=== PATIENT | male | born 1940 | race Caucasian/White ===

== ENCOUNTER 2019-11-10 10:22 | Outpatient (CLI) | payer MEDICARE, OTHER, SELFPAY ==
[2019-11-10 11:03] LABS: Basophils % 0.6 %; Eosinophils # 0.1 10^3/uL (0.0-0.8); Eosinophils % 1.9 %; Hematocrit 49.8 % (42.0-52.0); Hemoglobin 16.4 g/dL (11.7-16.6); Lymphocytes # 1.4 10^3/uL (0.8-4.8); Lymphocytes % 30.7 %; Mean Corpuscular HGB Conc 32.9 g/dL (30.0-36.0); Mean Corpuscular Hemoglobin 31.7 pg (28.0-34.0); Mean Corpuscular Volume 96.1 fL (80-94); Monocytes # 0.7 10^3/uL (0.2-0.9); Monocytes % 15.5 %; Neutrophils # 2.4 10^3/uL (1.8-7.7); Neutrophils % 51.1 %; Nucleated Red Blood Cells % 0 %; Platelet Count 185 10^3/cmm (130-400); Red Blood Count 5.18 10^6/uL (4.1-5.3); Red Cell Distribution Width 13.2 % (12.1-15.1); White Blood Count 4.7 10^3/uL (4.0-10.0)
[2019-11-10 11:20] LABS: Anion Gap 12.7 (5-19); Blood Urea Nitrogen 17 mg/dL (8-23); Carbon Dioxide 31 mmol/L (22-29); Chloride 103 mmol/L (98-107); Glucose 116 mg/dL (65-115); Osmolality Calculated 291 mOsm/kg (285-295); Potassium 4.7 mmol/L (3.5-5.1); Sodium 142 mmol/L (136-145)
--- NOTE | 2019-11-10 15:19 | ECG_ITS ---
Measurements Intervals [place] Rate: 65 P: 12 NM: 193 QRS: -46 QRSD: 125 T: 10 QT: 398 QTc: 414 SINUS RHYTHM RIGHT BUNDLE BRANCH BLOCK [120+ ms QRS DURATION, UPRIGHT V1, 40+ ms S IN I I/aVL/V4/V5/V6] LEFT ANTERIOR FASCICULAR BLOCK [QRS AXIS <= -45, QR IN I, RS IN II] VOLTAGE CRITERIA FOR LVH Compared to ECG 07/10/2017 20:42:56 Left anterior fascicular block now present Left ventricular hypertrophy now present Electronically Signed On 11-12-2019 18:47:57 CDT by Aydee Myers M.D. [email or web address]
== END 2019-11-10 10:23 | disposition home or self-care (01) ==
LOC: LAB 10:35
PROVIDERS: Visit Provider Specialist
DX: Z01.810 Encounter for preprocedural cardiovascular examination (principal)
CPT/HCPCS: 36415; 80048; 85025; 93005

== ENCOUNTER 2020-01-19 | Outpatient (CLI) | payer MEDICARE, OTHER, SELFPAY ==
--- NOTE | 2020-01-18 09:54 | SUR.PREOP ---
Reschedule/ Caffeine intake Rescheduled d/t caffeine intake at 0700 this morning! New appointment date/time given. Prep instructions went over with the patient verbally and written instructions. Verbalized understanding.
== END 2020-01-19 23:00 | disposition home or self-care (01) ==
PROVIDERS: Visit Provider Internal Medicine Cardiovascular Disease
DX: R06.02 Shortness of breath (principal); R07.89 Other chest pain; I08.3 Combined rheumatic disorders of mitral, aortic and tricuspid valves
CPT/HCPCS: 93017

== ENCOUNTER 2020-01-19 09:38 | Outpatient (CLI) | payer MEDICARE, OTHER, SELFPAY ==
--- NOTE | 2020-01-19 10:10 | ECG_ITS ---
[facility] Test Date: 2020-01-19 Pat Name: Nasir Orourke Department: Room: Gender: Male Oracle R12 Developer: : 1940 Requested By: Belkis Isidro Order Number: [id number] Bella MD: Belkis Isidro M.D. Interpretive Statements NAME OF STUDY: LEXISCAN SESTAMIBI STRESS TEST INDICATION: Atypical Chest Pain PROCEDURE: At the baseline, the EKG revealed sinus bradycardia with right bundle branch block. The baseline blood pressure was 168/87 mm Hg with a heart rate of 58 beats/min. Lexiscan was infused over a period of 20 seconds. A total of 0.4 milligrams of Lexiscan was infused. The stress phase was continued for a total of 5 minutes. Heart rate at the end of the stress phase was 80 with a blood pressure 160/81. The EKG at the peak infusion revealed no significant changes. Sestamibi was injected 20 seconds after the Lexiscan infusion. Blood pressure at the end of the recovery phase was 178/85 with a heart rate of 80 per minute. CONCLUSION: 1. No significant EKG changes with the LexiScan infusion 2. No LexiScan induced chest pain or cardiac arrhythmia 3. Normal blood pressure and heart rate response 4. Sestamibi/sestamibi perfusion scan pending; see separate report. Electronically Signed On 01-20-2020 0:37:43 CDT by Belkis Isidro M.D. [id number]
[2020-01-19 10:11] VITALS: BMI 31.3
--- NOTE | 2020-01-19 10:11 | USCV_ITS ---
Nasir Orourke Age: 79 Gender: M : 1940 Exam Date: 01/19/2020 10:31 Ordering Phys: Belkis Isidro MD ([email or web address]) Technologist: Daisy Valenzuela Exam Location: [facility] [place] Indication: aortic valve stenosis BP: 130 / 75 HR: 63 Rhythm: Sinus Technical Quality: Adequate MEASUREMENTS (Male / Female) Normal Values 2D ECHO LV Diastolic Diameter PLAX 5.0 cm 4.2 - 5.9 / 3.9 - 5.3 cm LV Systolic Diameter PLAX 1.9 cm LV Chamber Size 3.2 cm IVS Diastolic Thickness 0.9 cm 0.6 - 1.0 / 0.6 - 0.9 cm IVS Systolic Thickness 2.2 cm LVPW Diastolic Thickness 1.4 cm 0.6 - 1.0 / 0.6 - 0.9 cm LVPW Systolic Thickness 1.5 cm RV Chamber Size 2.8 cm LVOT Diameter 2.1 cm LV Ejection Fraction 2D Teich 90.0 % LV Ejection Fraction MOD 2C 56.8 % LV Ejection Fraction 2C AL 58.9 % LA Diameter 3.9 cm LA Width 2.3 cm LA Height 3.8 cm RA Width 3.3 cm RA Height 3.7 cm Aorta at Sinotubular Diameter 3.6 cm M-MODE LV Diastolic Diameter MM 4.6 cm 4.2 - 5.9 / 3.9 - 5.3 cm LV Systolic Diameter MM 3.0 cm LV Ejection Fraction MM Teich 63.3 % IVS Diastolic Thickness MM 1.1 cm 0.6 - 1.0 / 0.6 - 0.9 cm IVS Systolic Thickness MM 1.2 cm LVPW Diastolic Thickness MM 1.0 cm 0.6 - 1.0 / 0.6 - 0.9 cm LVPW Systolic Thickness MM 1.4 cm RV Diastolic Diameter MM 1.9 cm Aortic Annulus Diameter 3.6 cm LA Ao Ratio MM 1.1 MV E Point Septal Separation 0.5 cm DOPPLER AV Peak Velocity 125.0 cm/s LVOT Peak Velocity 85.0 cm/s AV Area Cont Eq vti 2.3 cm squared AV Area Cont Eq pk 2.3 cm squared MV Area PHT 3.3 cm squared Mitral E to A Ratio 0.7 MV E' Velocity 7.0 cm/s Mitral E to MV E' Ratio 8.6 Mitral E to LV E' Lateral Ratio 8.7 Mitral E to LV E' Septal Ratio 8.4 TR Peak Velocity 177.0 cm/s TR Peak Gradient 12.6 mmHg TR Mean Velocity 120.5 cm/s TR Mean Gradient 6.5 mmHg TR Velocity Time Integral 45.2 cm TV Peak E Velocity 52.0 cm/s Right Atrial Pressure 3.0 mmHg Pulmonary Artery Systolic Pressu 15.5 mmHg PV Peak Velocity 71.0 cm/s RV Acceleration Time 0.1 s RV Ejection Time 0.1 s RV AcT/ET 0.9 FINDINGS Left Ventricle Normal left ventricular size and systolic function, EF 61 %. Mild left ventricular hypertrophy. Grade I/IV diastolic dysfunction (abnormal relaxation filling pattern), normal to mildly elevated filling pressures. Right Ventricle Normal right ventricular size and systolic function. Right Atrium Normal right atrial size. Left Atrium Normal left atrial size. Mitral Valve Thickened mitral valve. Mild mitral annular calcification. Aortic Valve Thickened aortic valve. Tricuspid Valve Trace tricuspid valve regurgitation. Pulmonic Valve Pulmonic valve not well visualized. Pericardium No pericardial effusion. Aorta Normal aorta. CONCLUSIONS Normal left ventricular size and systolic function, EF 61 %. Mild left ventricular hypertrophy. Grade I/IV diastolic dysfunction (abnormal relaxation filling pattern), normal to mildly elevated filling pressures. Thickened mitral valve. Thickened aortic valve. Trace tricuspid valve regurgitation. Mild mitral annular calcification. There is no pericardial effusion. There are no intracardiac masses. No previous study is available for comparison. Dr Belkis Isidro MD FAC (Electronically Signed) Final Date: 19 January 2020 20:48 S
--- NOTE | 2020-01-19 10:11 | NMCV_ITS ---
NM og perf SPECT r/s* 19302 Nasir Orourke Age: 79 Gender: M : 1940 Exam Date: 01/19/2020 11:14 Ordering Phys: Belkis Isidro MD ([email or web address]) Technologist: RANDY Brown Exam Location: [facility] Indications: SHORTNESS OF BREATH, CHEST PAIN STRESS TEST Please see separate stress test report in [facility] for full findings IMAGE PROTOCOL Rest/Stress 1 Lexiscan Day Radiopharmaceutical Dose (mCi) Administration Site Administered by Rest: Tc-99m 11.0 IV RANDY Doshi Sestamibi Stress:Tc-99m 33.0 IV RANDY Brown Sestamiulises Rest: 19-Jan-2020 60 Discovery 630 Stress: 19-Jan-2020 30 Discovery 630 0.4mg Lexiscan. Images obtained in supine and prone position. SPECT RESULTS Technical Quality: Excellent Raw Data Analysis: Normal Image Corrections: No attenuation or motion correction applied Summed Stress Score: 3 Summed Rest Score: 1 Summed Difference Score: 2 PERFUSION FINDINGS Small area of decreased tracer uptake in the mid and apical inferior and apical lateral region with a subtle area of reversibility in the apical inferior FUNCTIONAL RESULTS (calculated via Gated SPECT) Stress Image LV EF (%): 72 Stress EDV (mL):95 TID: 0.93 Stress ESV (mL):27 FUNCTIONAL FINDINGS: Segmental wall motion analysis revealing no gross wall motion normalities IMPRESSIONS 1. Myocardial perfusion imaging revealing small area of decreases uptake in the mid and apical inferior and apical lateral region with a subtle area of reversibility in the apical inferior region, suggestive of myocardial scarring with a small area of mandi-infarction ischemia in the distribution of the right coronary artery. 2. Normal LV ejection fraction of 72%. 3. LV wall motion analysis revealing no gross wall motion normalities. 4. Normal LV volume. No similar previous studies are available for comparison Dr Belkis Isidro MD FACC (Electronically Signed) Final Date: 19 January 2020 20:13 S
[2020-01-19] MEDS: regadenoson 0.4 Mg/5 ml Syringe IVP (12:14)
[2020-01-19 13:07] VITALS: BP 178/85; PULSE 79
== END 2020-01-19 09:39 | disposition home or self-care (01) ==
LOC: RAD 09:40
PROVIDERS: Visit Provider Internal Medicine Cardiovascular Disease
DX: R06.02 Shortness of breath; R07.9 Chest pain, unspecified; I25.9 Chronic ischemic heart disease, unspecified; I08.3 Combined rheumatic disorders of mitral, aortic and tricuspid valves
CPT/HCPCS: 78452; 93306; A9500; J2785

== ENCOUNTER 2020-06-09 10:09 | Outpatient (CLI) | payer MEDICARE, OTHER, SELFPAY ==
--- NOTE | 2020-02-16 17:21 | PTH.FRZRPT ---
Frozen Section Notes Speicmen(s): Right lower lip skin biopsy Gross: Skin ellipse measuring 1.1 x 0.4 x 0.3 cm bisected and submitted for frozen Preliminary Impression: Focus of atypical squamous cells with acute and chronic inflammation. - Specimen Information Pathologist: Christian Rouse Date: 02/16/20 Time Received: 09:25 Time Reported: 09:45 Pathology Specimen Reported to: Dr. Brad Sebastian Specimen reported at what time: 09:45
== END 2020-06-09 10:10 | disposition home or self-care (01) ==
LOC: LAB 10:10
PROVIDERS: Visit Provider Specialist
DX: L72.0 Epidermal cyst (principal)
CPT/HCPCS: 88304; 88305

== ENCOUNTER 2022-05-14 05:15 | Emergency (ER) | payer MEDICARE, OTHER, SELFPAY ==
[2022-05-14] VITALS (7 sets, daily range): BP systolic 138–204; BP diastolic 66–109; PULSE 76–85; RESP 16–33; TEMP 36.7; O2SAT 92–96; BMI 31.1
--- NOTE | 2022-05-14 05:21 | ECG_ITS ---
[facility] Test Date: 2022-05-14 Pat Name: Nasir Orourke Department: Room: Gender: Male Speech And Language Assistant: : 1940 Requested By: Merlin Nath Order Number: [id number] Bella MD: Belkis Isidro M.D. Measurements Intervals [place] Rate: 83 P: 45 CO: 165 QRS: -43 QRSD: 134 T: 57 QT: 376 QTc: 444 Interpretive Statements SINUS RHYTHM LEFT AXIS DEVIATION [QRS AXIS < -30] RIGHT BUNDLE BRANCH BLOCK [120+ ms QRS DURATION, UPRIGHT V1, 40+ ms S IN I/aVL/V4/V5/V6] MINIMAL VOLTAGE CRITERIA FOR LVH, CONSIDER NORMAL VARIANT [MEETS CRITERIA IN ONE OF: R(aVL), S(V1), R(V5), R(V5/V6)+S(V1)] POSSIBLE SEPTAL MYOCARDIAL INFARCTION , PROBABLY OLD [30 ms Q WAVE IN V1/V2] Compared to ECG 11/10/2019 11:31:27 Left-axis deviation now present Myocardial infarct finding now present Left anterior fascicular block no longer present Electronically Signed On 05-14-2022 20:34:50 PRIVATE MORTGAGE BANKER SAFE by Belkis Isidro M.D. [id number]
--- NOTE | 2022-05-14 05:23 | XRR_ITS ---
PROCEDURE INFORMATION: Exam: XR Chest Exam date and time: 05/14/2022 6:27 AM Age: 82 years old Clinical indication: Shortness of breath; Patient HX: C/O SOB TECHNIQUE: Imaging protocol: Radiologic exam of the chest. Views: 1 view. COMPARISON: CR XR chest 2V* [id number] 08/01/2017 12:16 PM FINDINGS: Lungs: The lung parenchyma is clear. Pleural spaces: No pneumothorax. No pleural effusion. Heart/Mediastinum: The cardiomediastinal silhouette is within normal limits. Bones/joints: Unremarkable. XR/XR chest 1V portable [id number] IMPRESSION: No acute cardiopulmonary abnormality.
--- NOTE | 2022-05-14 05:25 | W.ED.SOB ---
Documented by User: Merlin Nath MD 05/14/22 05:28 HPI - SOB/Dyspnea General: Chief Complaint: Shortness of Breath/Dyspnea Stated Complaint: SOB Time Seen by Provider: 05/14/22 05:16 Source: patient Mode of arrival: ambulatory Limitations: no limitations History of Present Illness: HPI Narrative: 82-year-old male who has a history of COPD states he has been having cough shortness of breath over the last 3 days he states its worse with laying flat he states that it is also worse with some exertion. States he is having a sharp pain in the center of his chest he feels like is from coughing. He does have wheezing here he denies any vomiting or diarrhea denies any pain currently. Associated symptoms: Reports chest pain; Deny abdominal pain, fever(s), nausea or vomiting Review of Systems Const: Denies: fever(s), chills, body aches or change in appetite Eyes: Denies: blurry vision or eye discomfort ENMT: Denies: throat pain or dental pain Card: Reports: chest pain Resp: Reports: dyspnea and non-productive cough GI: Denies: abdominal pain, nausea, vomiting or diarrhea : Denies: dysuria Musc: Denies: neck pain or back pain Skin/Breast: Denies: rash Neuro: Denies: headache(s) Psych: Denies: depression Asim/Lymph: Denies: easy bruising All/Imm: Denies: urticaria PFSH ED PFSH: Medical History (Updated 05/14/22 @ 05:42 by Merlin Nath MD) Abnormal EKG Asthma Atypical chest pain Benign essential HTN COPD (chronic obstructive pulmonary disease) Elevated blood pressure reading Neoplasm of lip Shingles SOB (shortness of breath) Surgical History History of carpal tunnel release Family History Son Cancer Denies family history of Diabetes CAD (coronary artery disease) Clotting disorder Dementia Chronic kidney disease (CKD) Suicide Anesthesia complication Bleeding disorder Lung disease Stroke Social History Smoking and tobacco status: current some day smoker Alcohol intake: current Alcohol intake frequency: 3 or more drinks per day Physical Exam Const: COMMON NORMALS: patient oriented x3 HENMT: COMMON NORMALS: normocephalic and atraumatic HEAD & SCALP: normocephalic and atraumatic Eye: COMMON NORMALS: Equal, round and reactive pupils present and EOMs intact bilaterally PUPIL: Yes Equal, round and reactive pupils present Neck/C-Spine: COMMON NORMALS: full ROM and supple Chest: COMMONS NORMALS: normal inspection of the chest and normal palpation of entire chest wall Resp: COMMON NORMALS: No retractions and No use of accessory muscles EFFORT & INSPECTION: Yes tachypneic AUSCULTATION: wheezes Cardio: COMMON NORMALS: regular rate, regular rhythm and No murmurs present (Cardio) RATE: regular rate RHYTHM: regular rhythm GI: COMMON NORMALS: Normal to inspection, nondistended, normoactive bowel sounds present, Soft to palpation, non-tender and no masses PALPATION: Yes Soft to palpation Extremity: COMMON NORMALS: normal to inspection and full ROM Neuro: COMMON NORMALS: patient oriented x3, moves all extremities and no focal motor deficits Psych: COMMON NORMALS: mental status grossly normal, Normal thought process present and cooperative THOUGHT PROCESS: Normal thought process present Skin: COMMON NORMALS: no rashes or lesions noted and no wounds GENERAL SKIN EXAM: no rashes or lesions noted Course Vital Signs: Vital signs: Vital Signs Temperature 98.0 F 05/14/22 05:19 Pulse Rate 85 05/14/22 06:53 Respiratory Rate 22 H 05/14/22 06:53 Blood Pressure 161/82 05/14/22 06:53 Pulse Oximetry 92 05/14/22 06:53 Oxygen Delivery Me thod 05/14/22 05:34 MDM - SOB/Dyspnea Lab Data 05/14/22 05:26 05/14/22 05:26 Labs/Radiology: Radiology Impressions Chest X-Ray 05/14/22 05:23 IMPRESSION: No acute cardiopulmonary abnormality. Laboratory Results WBC 5.7 10^3/uL (4.0-10.0) 05/14/22 05:26 RBC 5.34 10^6/uL (4.1-5.3) H 05/14/22 05:26 Hgb 17.2 g/dL (11.7-16.6) H 05/14/22 05:26 Hct 51.5 % (42.0-52.0) 05/14/22 05:26 MCV 96.4 fl (80-94) H 05/14/22 05:26 MCH 32.2 pg (28.0-34.0) 05/14/22 05:26 MCHC 33.4 g/dL (30.0-36.0) 05/14/22 05:26 RDW 13.1 % (12.1-15.1) 05/14/22 05:26 Plt Count 176 10^3/cmm (130-400) 05/14/22 05:26 MPV 10.1 fL (7.4-10.4) 05/14/22 05:26 Neut % (Auto) 59.5 % 05/14/22 05:26 Lymph % (Auto) 18.7 % 05/14/22 05:26 Harvey % (Auto) 19.8 % 05/14/22 05:26 Eos % (Auto) 1.2 % 05/14/22 05:26 Baso % (Auto) 0.4 % 05/14/22 05:26 Neut # (Auto) 3.40 10^3/uL (1.8-7.7) 05/14/22 05:26 Lymph # (Auto) 1.1 10^3/uL (0.8-4.8) 05/14/22 05:26 Harvey # (Auto) 1.1 10^3/uL (0.2-0.9) H 05/14/22 05:26 Eos # (Auto) 0.1 10^3/uL (0.0-0.8) 05/14/22 05:26 Baso # (Auto) 0.0 10^3/uL (0.0-0.1) 05/14/22 05:26 Nucleated RBC % (auto) 0 % 05/14/22 05:26 Nucleated RBCs # 0.0 /100WBC 05/14/22 05:26 Sodium 141 mmol/L (136-145) 05/14/22 05:26 Potassium 4.2 mmol/L (3.5-5.1) 05/14/22 05:26 Chloride 103 mmol/L (98-107) 05/14/22 05:26 Carbon Dioxide 26 mmol/L (22-29) 05/14/22 05:26 Anion Gap 16.2 (5-19) 05/14/22 05:26 BUN 11 mg/dL (8-23) 05/14/22 05:26 Creatinine 1.1 mg/dL (0.7-1.2) 05/14/22 05:26 GFR Calculation Not Reportable 05/14/22 05:26 Glucose 113 mg/dL (65-115) 05/14/22 05:26 Calculated Osmolality 292 mOsm/kg (285-295) 05/14/22 05:26 Calcium 9.1 mg/dL (8.5-10.5) 05/14/22 05:26 Total Bilirubin 0.8 mg/dL (0.15-1.2) 05/14/22 05:26 AST 38 U/L (0-40) 05/14/22 05:26 ALT 24 U/L (0-41) 05/14/22 05:26 Alkaline Phosphatase 122 U/L (40-130) 05/14/22 05:26 Troponin T Baseline 17 ng/L (0-15) H 05/14/22 05:26 Troponin T 120 Minute 15.40 ng/L (0-15) H 05/14/22 07:28 Delta Troponin T -1.60 ABS# (0-10) L 05/14/22 07:28 NT-Pro-B Natriuret Pep 278 pg/mL (0-450) 05/14/22 05:26 Total Protein 6.9 g/dL (6.6-8.7) 05/14/22 05:26 Albumin 4.2 g/dL (3.5-5.2) 05/14/22 05:26 Globulin 2.7 g/dL (1.3-4.6) 05/14/22 05:26 Nasal Influ A H1 2009 PCR Detected (NOT DETECT) A 05/14/22 07:22 Coronavirus 229E (PCR) Not detected (NOT DETECT) 05/14/22 05:25 Influenza A (H1) PCR Not detected (NOT DETECT) 05/14/22 07:22 Influenza A (H3) PCR Not detected (NOT DETECT) 05/14/22 07:22 Influenza Type A Ag positive (Negative) 05/14/22 05:25 Influenza Type A (PCR) Detected (NOT DETECT) A 05/14/22 07:22 Influenza Type B Ag negative (Negative) 05/14/22 05:25 Influenza Type B (PCR) Not detected (NOT DETECT) 05/14/22 07:22 SARS-CoV-2 (PCR) Not detected (NOT DETECT) 05/14/22 05:25 EKG Data EKG 1: I personally reviewed and interpreted this EKG as follows: EKG Interpretation Date: 05/14/22 EKG interpretation time: 05:21 Interpretation: nsr hr [address] or t wave abnormalities qrs 134 qtc 416 Discharge Plan Discharge Patient Disposition: Home Clinical Impression: Influenza A Condition: Stable Prescriptions: New Tamiflu 75 mg capsule 75 mg PO BID 5 Days Qty: 10 0RF prednisone 50 mg tablet 50 mg PO DAILY Qty: 5 0RF albuterol sulfate 90 mcg/actuation HFA aerosol inhaler 2 inh INHALATION Q4H PRN (Reason: shortness of breath or wheezing) Qty: 18 0RF No Action naproxen sodium [Aleve] 220 mg tablet 220 mg PO BID PRN amlodipine 5 mg tablet 5 mg PO DAILY 30 Days Qty: 30 5RF Discharge Orders: Discharge ED (Routine); Ordered 05/14/22 Ordered By: Rui Jones Discharge Diet: Advance as tolerated Discharge Activity: Resume usual activity Patient Instructions: Influenza (ED) Activity Restrictions/Additional Instructions: You are seen in the emergency room today for shortness of breath and cough. Your influenza was positive. Sign Out Sign Out Data: Patient Sign Out occurred on 05/14/22 at 05:55. Patient's care was discussed, and care was transferred from to Rui Jones DO. Coding Level of Care Code ED Supervisor Cutting And Sewing Room for Chg Fwd Exam Comprehensive Documented by User: Rui Jones DO 05/14/22 08:23 HPI - SOB/Dyspnea General: Chief Complaint: Shortness of Breath/Dyspnea Stated Complaint: SOB Time Seen by Provider: 05/14/22 05:16 PFSH ED PFSH: Medical History (Updated 05/14/22 @ 05:42 by Merlin Nath MD) Abnormal EKG Asthma Atypical chest pain Benign essential HTN COPD (chronic obstructive pulmonary disease) Elevated blood pressure reading Neoplasm of lip Shingles SOB (shortness of breath) Surgical History History of carpal tunnel release Family History Son Cancer Denies family history of Diabetes CAD (coronary artery disease) Clotting disorder Dementia Chronic kidney disease (CKD) Suicide Anesthesia complication Bleeding disorder Lung disease Stroke Social History Smoking and tobacco status: current some day smoker Alcohol intake: current Alcohol intake frequency: 3 or more drinks per day Course Vital Signs: Vital signs: Vital Signs Temperature 98.0 F 05/14/22 05:19 Pulse Rate 85 05/14/22 06:53 Respiratory Rate 22 H 05/14/22 06:53 Blood Pressure 161/82 05/14/22 06:53 Pulse Oximetry 92 05/14/22 06:53 Oxygen Delivery Me thod 05/14/22 05:34 MDM - SOB/Dyspnea Medical Decision Making Care assumed at change of care shift. Patient had initial troponin of 17 is a positive influenza. Looking back through his chart 2 years ago he had a questionable Lexiscan sestamibi stress test there was some area of concern concerning for potential reversible ischemia according to the note in the doctor's office his chest pain did not sound cardiac in nature the patient did not want to go forward with any further testing so they had decided to hold off and just observe. Second troponin actually trended down patient will be discharged home. Interestingly patient had recently gotten a flu shot within the last several days. Unfortunately none of time and gone by for him to develop any antibodies from shot this likely will have a full course of fluid from this infection. Medical Records I reviewed the patient's medical records. Lab Data I reviewed the patient's lab results. 05/14/22 05:26 05/14/22 05:26 Labs/Radiology: Radiology Impressions Chest X-Ray 05/14/22 05:23 IMPRESSION: No acute cardiopulmonary abnormality. Laboratory Results WBC 5.7 10^3/uL (4.0-10.0) 05/14/22 05:26 RBC 5.34 10^6/uL (4.1-5.3) H 05/14/22 05:26 Hgb 17.2 g/dL (11.7-16.6) H 05/14/22 05:26 Hct 51.5 % (42.0-52.0) 05/14/22 05:26 MCV 96.4 fl (80-94) H 05/14/22 05:26 MCH 32.2 pg (28.0-34.0) 05/14/22 05:26 MCHC 33.4 g/dL (30.0-36.0) 05/14/22 05:26 RDW 13.1 % (12.1-15.1) 05/14/22 05:26 Plt Count 176 10^3/cmm (130-400) 05/14/22 05:26 MPV 10.1 fL (7.4-10.4) 05/14/22 05:26 Neut % (Auto) 59.5 % 05/14/22 05:26 Lymph % (Auto) 18.7 % 05/14/22 05:26 Harvey % (Auto) 19.8 % 05/14/22 05:26 Eos % (Auto) 1.2 % 05/14/22 05:26 Baso % (Auto) 0.4 % 05/14/22 05:26 Neut # (Auto) 3.40 10^3/uL (1.8-7.7) 05/14/22 05:26 Lymph # (Auto) 1.1 10^3/uL (0.8-4.8) 05/14/22 05:26 Harvey # (Auto) 1.1 10^3/uL (0.2-0.9) H 05/14/22 05:26 Eos # (Auto) 0.1 10^3/uL (0.0-0.8) 05/14/22 05:26 Baso # (Auto) 0.0 10^3/uL (0.0-0.1) 05/14/22 05:26 Nucleated RBC % (auto) 0 % 05/14/22 05:26 Nucleated RBCs # 0.0 /100WBC 05/14/22 05:26 Sodium 141 mmol/L (136-145) 05/14/22 05:26 Potassium 4.2 mmol/L (3.5-5.1) 05/14/22 05:26 Chloride 103 mmol/L (98-107) 05/14/22 05:26 Carbon Dioxide 26 mmol/L (22-29) 05/14/22 05:26 Anion Gap 16.2 (5-19) 05/14/22 05:26 BUN 11 mg/dL (8-23) 05/14/22 05:26 Creatinine 1.1 mg/dL (0.7-1.2) 05/14/22 05:26 GFR Calculation Not Reportable 05/14/22 05:26 Glucose 113 mg/dL (65-115) 05/14/22 05:26 Calculated Osmolality 292 mOsm/kg (285-295) 05/14/22 05:26 Calcium 9.1 mg/dL (8.5-10.5) 05/14/22 05:26 Total Bilirubin 0.8 mg/dL (0.15-1.2) 05/14/22 05:26 AST 38 U/L (0-40) 05/14/22 05:26 ALT 24 U/L (0-41) 05/14/22 05:26 Alkaline Phosphatase 122 U/L (40-130) 05/14/22 05:26 Troponin T Baseline 17 ng/L (0-15) H 05/14/22 05:26 Troponin T 120 Minute 15.40 ng/L (0-15) H 05/14/22 07:28 Delta Troponin T -1.60 ABS# (0-10) L 05/14/22 07:28 NT-Pro-B Natriuret Pep 278 pg/mL (0-450) 05/14/22 05:26 Total Protein 6.9 g/dL (6.6-8.7) 05/14/22 05:26 Albumin 4.2 g/dL (3.5-5.2) 05/14/22 05:26 Globulin 2.7 g/dL (1.3-4.6) 05/14/22 05:26 Nasal Influ A H1 2009 PCR Detected (NOT DETECT) A 05/14/22 07:22 Coronavirus 229E (PCR) Not detected (NOT DETECT) 05/14/22 05:25 Influenza A (H1) PCR Not detected (NOT DETECT) 05/14/22 07:22 Influenza A (H3) PCR Not detected (NOT DETECT) 05/14/22 07:22 Influenza Type A Ag positive (Negative) 05/14/22 05:25 Influenza Type A (PCR) Detected (NOT DETECT) A 05/14/22 07:22 Influenza Type B Ag negative (Negative) 05/14/22 05:25 Influenza Type B (PCR) Not detected (NOT DETECT) 05/14/22 07:22 SARS-CoV-2 (PCR) Not detected (NOT DETECT) 05/14/22 05:25 Discharge Plan Discharge Patient Disposition: Home Clinical Impression: Influenza A Condition: Stable Prescriptions: New Tamiflu 75 mg capsule 75 mg PO BID 5 Days Qty: 10 0RF prednisone 50 mg tablet 50 mg PO DAILY Qty: 5 0RF albuterol sulfate 90 mcg/actuation HFA aerosol inhaler 2 inh INHALATION Q4H PRN (Reason: shortness of breath or wheezing) Qty: 18 0RF No Action naproxen sodium [Aleve] 220 mg tablet 220 mg PO BID PRN amlodipine 5 mg tablet 5 mg PO DAILY 30 Days Qty: 30 5RF Discharge Orders: Discharge ED (Routine); Ordered 05/14/22 Ordered By: Rui Jones Discharge Diet: Advance as tolerated Discharge Activity: Resume usual activity Patient Instructions: Influenza (ED) Activity Restrictions/Additional Instructions: You are seen in the emergency room today for shortness of breath and cough. Your influenza was positive. Sign Out Sign Out Data: Patient Sign Out occurred on 05/14/22 at 05:55. Patient's care was discussed, and care was transferred from to Rui Jones DO. Coding Level of Care Code ED Supervisor Cutting And Sewing Room for Juanita Fwd Exam Comprehensive
[2022-05-14 05:31] LABS: Basophils % 0.4 %; Eosinophils # 0.1 10^3/uL (0.0-0.8); Eosinophils % 1.2 %; Hematocrit 51.5 % (42.0-52.0); Hemoglobin 17.2 g/dL (11.7-16.6); Lymphocytes # 1.1 10^3/uL (0.8-4.8); Lymphocytes % 18.7 %; Mean Corpuscular HGB Conc 33.4 g/dL (30.0-36.0); Mean Corpuscular Hemoglobin 32.2 pg (28.0-34.0); Mean Corpuscular Volume 96.4 fl (80-94); Mean Platelet Volume 10.1 fL (7.4-10.4); Monocytes # 1.1 10^3/uL (0.2-0.9); Monocytes % 19.8 %; Neutrophils % 59.5 %; Nucleated Red Blood Cells % 0 %; Platelet Count 176 10^3/cmm (130-400); Red Blood Count 5.34 10^6/uL (4.1-5.3); Red Cell Distribution Width 13.1 % (12.1-15.1); White Blood Count 5.7 10^3/uL (4.0-10.0)
[2022-05-14] MEDS: ipratropium-albuterol 3 mL Neb INHALATION (05:36)
[2022-05-14 05:39] LABS: Influenza A by IFA positive (Negative); Influenza B by IFA negative (Negative)
[2022-05-14 05:55] LABS: Troponin(5th) Baseline 17 ng/L (0-15)
[2022-05-14 06:28] LABS: Alanine Aminotransferase 24 U/L (0-41); Albumin Level 4.2 g/dL (3.5-5.2); Alkaline Phosphatase 122 U/L (40-130); Aspartate Amino Transferase 38 U/L (0-40); Blood Urea Nitrogen 11 mg/dL (8-23); Calcium 9.1 mg/dL (8.5-10.5); Carbon Dioxide 26 mmol/L (22-29); Chloride 103 mmol/L (98-107); Globulin 2.7 g/dL (1.3-4.6); Glucose 113 mg/dL (65-115); NT Pro B Type Natriuretic Pept 278 pg/mL (0-450); Osmolality Calculated 292 mOsm/kg (285-295); Sodium 141 mmol/L (136-145); Total Bilirubin 0.8 mg/dL (0.15-1.2); Total Protein 6.9 g/dL (6.6-8.7)
[2022-05-14 06:43] LABS: Anion Gap 16.2 (5-19); Potassium 4.2 mmol/L (3.5-5.1)
[2022-05-14 07:12] LABS: Adenovirus Not Detected (NOT DETECT); Chlamydia Pneumoniae Not Detected (NOT DETECT); Coronavirus 229E,HKU1,NL63,OC4 Not Detected (NOT DETECT); Human Metapneumovirus Not Detected (NOT DETECT); Human Rhinovirus/Enterovirus Not Detected (NOT DETECT); Influenza A Detected (NOT DETECT); Influenza A H1 Not Detected (NOT DETECT); Influenza A H1-2009 Detected (NOT DETECT); Influenza A H3 Not Detected (NOT DETECT); Influenza B Not Detected (NOT DETECT); Mycoplasma Pneumoniae Not Detected (NOT DETECT); Parainfluenza Virus Type 1 Not Detected (NOT DETECT); Parainfluenza Virus Type 2 Not Detected (NOT DETECT); Parainfluenza Virus Type 3 Not Detected (NOT DETECT); Parainfluenza Virus Type 4 Not Detected (NOT DETECT); Respiratory Syncytial Virus A Not Detected (NOT DETECT); Respiratory Syncytial Virus B Not Detected (NOT DETECT); SARS-COV-2 Not Detected (NOT DETECT)
[2022-05-14 07:23] LABS: Influenza A Detected (NOT DETECT); Influenza A H1 Not Detected (NOT DETECT); Influenza A H1-2009 Detected (NOT DETECT); Influenza A H3 Not Detected (NOT DETECT); Influenza B Not Detected (NOT DETECT)
--- NOTE | 2022-05-14 07:23 | ECG_ITS ---
[facility] Test Date: 2022-05-14 Pat Name: Nasir Orourke Department: Room: Gender: Male Cooker Soda: : 1940 Requested By: Merlin Nath Order Number: [id number] Bella MD: Belkis Isidro M.D. Measurements Intervals [place] Rate: 77 P: 50 SC: 182 QRS: -42 QRSD: 126 T: 26 QT: 381 QTc: 434 Interpretive Statements SINUS RHYTHM LEFT AXIS DEVIATION [QRS AXIS < -30] RIGHT BUNDLE BRANCH BLOCK [120+ ms QRS DURATION, UPRIGHT V1, 40+ ms S IN I/aVL/V4/V5/V6] MODERATE VOLTAGE CRITERIA FOR LVH, CONSIDER NORMAL VARIANT [MEETS CRITERIA IN ONE OF: R(aVL), S(V1), R(V5), R(V5/V6)+S(V1)] Compared to ECG 05/14/2022 05:21:28 Myocardial infarct finding no longer present Electronically Signed On 05-14-2022 20:45:01 CERTIFIED ALCOHOL AND DRUG COUNSELOR by Belkis Isidro M.D. [id number]
[2022-05-14 07:24] LABS: Results from GEN
== END 2022-05-14 08:54 | disposition home or self-care (01) ==
PROVIDERS: Emergency Medicine; Emergency Provider Family Medicine
DX: J10.1 Influenza due to other identified influenza virus with other respiratory manifestations (principal); R07.9 Chest pain, unspecified; J44.9 Chronic obstructive pulmonary disease, unspecified; I10 Essential (primary) hypertension; F17.200 Nicotine dependence, unspecified, uncomplicated
CPT/HCPCS: 71045; 80053; 83880; 84484; 85025; 87631; 87635; 87804; 93005; 94640; 96374; 99285; J2930

== ENCOUNTER 2022-07-03 11:28 | Outpatient (CLI) | payer MEDICARE, OTHER, SELFPAY ==
--- NOTE | 2022-07-03 11:43 | XR_ITS ---
WS: [id number] XR abdomen min 2V [id number] REASON FOR EXAM: EPIGASTRIC PAIN FINDINGS: No free air or retroperitoneal air. Unremarkable bowel gas pattern. No mass identified. No significant calcification identified. 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 XR/XR abdomen min 2V [id number] IMPRESSION: No acute abnormality.
== END 2022-07-03 11:29 | disposition home or self-care (01) ==
PROVIDERS: PCP Family Medicine; Visit Provider Family Medicine
DX: R10.13 Epigastric pain (principal)
CPT/HCPCS: 74019

== ENCOUNTER 2023-07-21 15:06 | Outpatient (CLI) | payer MEDICARE, OTHER, SELFPAY ==
--- NOTE | 2023-07-21 15:14 | XRR_ITS ---
PROCEDURE INFORMATION: Exam: XR Chest Exam date and time: 07/21/2023 3:23 PM Age: 83 years old Clinical indication: Shortness of breath and wheezing; Patient HX: SOB, wheezing, spitting up for 2 weeks; Additional info: Acute exacerbation copd TECHNIQUE: Imaging protocol: Radiologic exam of the chest. Views: 2 views. COMPARISON: CR XR chest 1V portable [id number] 05/14/2022 6:27 AM FINDINGS: Lungs: Patulous bibasilar opacities, right greater than left. Pleural spaces: No pleural effusion. No pneumothorax. Heart/Mediastinum: No cardiomegaly. Bones/joints: Unremarkable. XR/XR chest 2V* [id number] IMPRESSION: Patulous bibasilar opacities, right greater than left.
== END 2023-07-21 15:07 | disposition home or self-care (01) ==
LOC: RAD 15:08
PROVIDERS: PCP Family Medicine; Visit Provider Family Medicine
DX: J44.1 Chronic obstructive pulmonary disease with (acute) exacerbation (principal); R91.8 Other nonspecific abnormal finding of lung field
CPT/HCPCS: 71046

== ENCOUNTER 2023-08-06 08:39 | Outpatient (CLI) | payer MEDICARE, OTHER, SELFPAY ==
[2023-08-06 09:00] VITALS: PULSE 76; RESP 18; O2SAT 97
[2023-08-06] MEDS: albuterol 2.5 mg/3 mL Neb INHALATION (09:01)
[2023-08-06 09:05] VITALS: PULSE 78
== END 2023-08-06 08:40 | disposition home or self-care (01) ==
PROVIDERS: PCP Family Medicine; Visit Provider Family Medicine
DX: J44.9 Chronic obstructive pulmonary disease, unspecified (principal); Z87.891 Personal history of nicotine dependence; R94.2 Abnormal results of pulmonary function studies
CPT/HCPCS: 94060; J7613

== ENCOUNTER 2023-10-15 11:01 | Outpatient (CLI) | payer MEDICARE, OTHER, SELFPAY ==
--- NOTE | 2023-10-15 11:10 | XRR_ITS ---
PROCEDURE INFORMATION: Exam: XR Left Knee Exam date and time: 10/15/2023 11:21 AM Age: 83 years old Clinical indication: Pain; Knee; Bilateral; Additional info: Bilateral knee joint pain greater than 3 months TECHNIQUE: Imaging protocol: Radiologic exam of the left knee. Views: 3 views. COMPARISON: No relevant prior studies available. FINDINGS: Bones/joints: Severe degenerative change, preferentially involving the medial tibiofemoral joint. Soft tissues: Punctate soft tissue calcifications. XR/XR knee LT 3V* [id number] IMPRESSION: Severe degenerative change, preferentially involving the medial tibiofemoral joint.
--- NOTE | 2023-10-15 11:10 | XRR_ITS ---
PROCEDURE INFORMATION: Exam: XR Right Knee Exam date and time: 10/15/2023 11:21 AM Age: 83 years old Clinical indication: Bilateral; Patient HX: Left and right knee pain for 3 months; Additional info: Bilateral knee joint pain greater than 3 months TECHNIQUE: Imaging protocol: Radiologic exam of the right knee. Views: 3 views. COMPARISON: No relevant prior studies available. FINDINGS: Bones/joints: Severe degenerative change, disproportionately involving the medial tibiofemoral joint. Small joint effusion. Ankylosis of the proximal tibia and fibula. Soft tissues: Soft tissue calcifications. XR/XR knee RT 3V* [id number] IMPRESSION: Severe degenerative change, disproportionately involving the medial tibiofemoral joint.
== END 2023-10-15 11:02 | disposition home or self-care (01) ==
LOC: RAD 11:06
PROVIDERS: PCP Family Medicine; Visit Provider Family Medicine
DX: M25.561 Pain in right knee (principal); M25.562 Pain in left knee; M17.0 Bilateral primary osteoarthritis of knee
CPT/HCPCS: 73562

== ENCOUNTER → 2023-10-31 07:43 | Outpatient (BNVA) | payer MEDICARE, OTHER, SELFPAY | PROVIDERS: PCP Family Medicine; Visit Provider Physician Assistant | DX: M17.0 Bilateral primary osteoarthritis of knee | CPT/HCPCS: 20610; 73560; 73565; 99203; J3301 ==

== ENCOUNTER → 2024-01-27 13:21 | Outpatient (BNVA) | payer MEDICARE, OTHER, SELFPAY | PROVIDERS: PCP Family Medicine; Visit Provider Student in an Organized Health Care Education/Training Program | DX: M17.0 Bilateral primary osteoarthritis of knee | CPT/HCPCS: 99214 ==

== ENCOUNTER 2024-02-22 06:30 | Outpatient (RCR) | payer MEDICARE, OTHER, SELFPAY | END 2024-03-22 23:59 | disposition home or self-care (01) | LOC: GPT 06:30 | PROVIDERS: Visit Provider Internal Medicine | DX: M17.11 Unilateral primary osteoarthritis, right knee (principal) | CPT/HCPCS: 97110; 97112; 97161 ==

== ENCOUNTER 2024-03-01 09:24 | Outpatient (CLI) | payer MEDICARE, OTHER, SELFPAY ==
[2024-03-01 09:52] LABS: Basophils % 0.5 %; Eosinophils # 0.1 10^3/uL (0.0-0.8); Eosinophils % 2.2 %; Hematocrit 47.7 % (37-53); Lymphocytes # 1.9 10^3/uL (0.8-4.8); Lymphocytes % 31.5 %; Mean Corpuscular HGB Conc 33.1 g/dL (30-55); Mean Corpuscular Hemoglobin 32.6 pg (27-33); Mean Corpuscular Volume 98.4 fl (82-101); Mean Platelet Volume 10.3 fL (7.4-10.4); Monocytes # 0.7 10^3/uL (0.2-0.9); Monocytes % 12.1 %; Neutrophils # 3.12 10^3/uL (1.8-7.7); Neutrophils % 53.2 %; Nucleated Red Blood Cells % 0 %; Platelet Count 227 10^3/cmm (157-399); Red Blood Count 4.85 10^6/uL (3.85-5.65); Red Cell Distribution Width 13.6 % (12.1-15.1); White Blood Count 5.87 10^3/uL (3.29-11.43)
[2024-03-01 10:10] LABS: Alanine Aminotransferase 17 U/L (0-41); Alkaline Phosphatase 105 U/L (40-130); Anion Gap 10.8 (5-19); Aspartate Amino Transferase 24 U/L (0-40); Blood Urea Nitrogen 14 mg/dL (8-23); Calcium 8.8 mg/dL (8.5-10.5); Carbon Dioxide 31 mmol/L (22-29); Chloride 104 mmol/L (98-107); Globulin 2.6 g/dL (1.3-4.6); Glucose 120 mg/dL (65-115); Osmolality Calculated 296 mOsm/kg (285-295); Potassium 3.8 mmol/L (3.5-5.1); Sodium 142 mmol/L (136-145); Total Bilirubin 1.1 mg/dL (0.15-1.2); Total Protein 6.6 g/dL (6.6-8.7)
[2024-03-01 12:48] LABS: Charge for UA Resulting for Rev
[2024-03-01 13:05] LABS: Bilirubin Urine Negative (Negative); Blood Urine Negative (Negative); Glucose Urine UA Negative (Normal); Ketones Urine Negative (Negative); Leukocyte Esterase Urine Negative (Negative); Nitrate Urine Negative (Negative); Protein Urine Negative (Negative); Specific Gravity, Urine 1.008 (1.005-1.030); Urine Appearance Clear (CLEAR); Urine Color Yellow (Yellow); Urobilinogen Urine 0.2 mg/dL (Negative); pH Urine 5.5 (5-7)
[2024-03-01 13:07] LABS: Bacteria Urine None Seen /hpf; Hyaline Casts Urine 0-4 /lpf; RBC Urine 0-2 /hpf (0-2); Squamous Epithelial Cell Urine 0-5 /hpf (0-5); WBC Urine 0-5 /hpf (0-5)
== END 2024-03-01 09:25 | disposition home or self-care (01) ==
LOC: LAB 09:26
PROVIDERS: PCP Family Medicine; Visit Provider Student in an Organized Health Care Education/Training Program
DX: Z01.818 Encounter for other preprocedural examination (principal)
CPT/HCPCS: 36415; 80053; 81003; 81015; 85025

== ENCOUNTER 2024-03-04 13:16 | Outpatient (CLI) | payer MEDICARE, OTHER, SELFPAY ==
--- NOTE | 2024-03-04 13:30 | CT_ITS ---
WS: [id number] CT RIGHT knee, noncontrast HISTORY: DJD KNEE TECHNIQUE: Protocol for [facility] total knee replacement has been obtained. This includes axial imaging th rough the RIGHT hip, RIGHT knee and RIGHT ankle. DLP: 930.15 mGy.cm COMPARISON: 10/31/2023 Pelvis: Mild narrowing of the SI joints. No destructive bone lesions. RIGHT knee: Moderate tricompartment osteoarthritis. More significant narrowing of the medial compartm ent. Osseous fusion between the proximal tibia and fibula. Small hiatal hernia. RIGHT ankle: Negative. CT/CT knee RT [facility] [id number] IMPRESSION: CT imaging provided for [facility] robotic total knee replacement.
== END 2024-03-04 13:17 | disposition home or self-care (01) ==
LOC: RAD 13:18
PROVIDERS: PCP Family Medicine; Visit Provider Student in an Organized Health Care Education/Training Program
DX: Z01.818 Encounter for other preprocedural examination (principal); M17.0 Bilateral primary osteoarthritis of knee
CPT/HCPCS: 73700

== ENCOUNTER → 2024-03-09 11:43 | Outpatient (BNVA) | payer MEDICARE, OTHER, SELFPAY | PROVIDERS: PCP Family Medicine; Visit Provider Family Medicine | DX: Z01.818 Encounter for other preprocedural examination (principal); I45.10 Unspecified right bundle-branch block; I49.8 Other specified cardiac arrhythmias; I44.4 Left anterior fascicular block; I51.7 Cardiomegaly | CPT/HCPCS: 93005 ==

== ENCOUNTER 2024-03-15 09:37 | Observation (INO) | payer MEDICARE, OTHER, SELFPAY ==
[2024-03-15] VITALS (18 sets, daily range): BP systolic 131–170; BP diastolic 65–93; PULSE 76–105; RESP 12–19; TEMP 36.1–36.7; O2SAT 92–98
[2024-03-15] MEDS: lactated ringers 500 ML IV (06:28)
[2024-03-15] MEDS: sodium chloride 0.9% 1,000 ML 30 ML IV (06:30)
[2024-03-15] MEDS: acetaminophen 1,000 MG/100 ML PIGGYBACK 400 MG IV ×3 (06:32→22:30)
[2024-03-15] MEDS: ketorolac 30 mg/mL INJ IVP (06:36)
[2024-03-15 06:47] LABS: Basophils % 0.6 %; Eosinophils # 0.1 10^3/uL (0.0-0.8); Eosinophils % 1.8 %; Hematocrit 50.6 % (37-53); Lymphocytes # 2.2 10^3/uL (0.8-4.8); Lymphocytes % 35.8 %; Mean Corpuscular HGB Conc 33.6 g/dL (30-55); Mean Corpuscular Hemoglobin 32.5 pg (27-33); Mean Corpuscular Volume 96.7 fl (82-101); Mean Platelet Volume 10.1 fL (7.4-10.4); Monocytes % 16.3 %; Neutrophils # 2.81 10^3/uL (1.8-7.7); Neutrophils % 45.3 %; Nucleated Red Blood Cells % 0 %; Platelet Count 216 10^3/cmm (157-399); Red Blood Count 5.23 10^6/uL (3.85-5.65); Red Cell Distribution Width 13.2 % (12.1-15.1)
[2024-03-15] MEDS: midazolam 1 mg/mL INJ 2 mL 2 MG IVP (06:50)
--- NOTE | 2024-03-15 06:55 | P.HP_ITS ---
Same Day Surgery H&P Indication for Procedure/HPI DATE OF PROCEDURE: March 15, 2024 CHIEF COMPLAINT/INDICATIONFOR SURGICAL PROCEDURE: Right knee degenerative joint disease PREOP DIAGNOSIS: Right knee degenerative joint disease PLANNED PROCEDURE: Operation Date: 03/15/24 07:00 Proposed Procedures p Kevin Robot Total Knee Arthroplasty(Right) - Shiv Vang DO Medications/Allergies* Home Medications Medication Instructions Recorded Confirmed Type naproxen sodium 220 mg tablet 220 mg PO BID PRN Pain 02/10/20 03/15/24 History (Aleve) cyclobenzaprine 10 mg tablet 10 mg PO BID PRN Spasms 03/09/24 03/15/24 History levalbuterol tartrate 45 2 inh inhalation Q6H 03/09/24 03/15/24 History mcg/actuation aerosol inhaler (Xopenex HFA) Allergies/Adverse Reactions Allergy/AdvReac Type Severity Reaction Status Date / Time No Known Allergies Allergy Verified 03/09/24 12:00 Current Medications: Generic Name Dose Route Start Last Admin Trade Name Freq PRN Reason Stop Dose Admin Sodium Chloride 1,000 mls @ 30 mls/hr 03/15/24 06:00 03/15/24 06:30 Sodium Chloride 0.9% IV 03/16/24 05:59 30 mls/hr .Q24H KATHE Administration Pertinent History/Comorbid Conditions* Medical History (Updated 10/31/23 @ 08:58 by TEJINDER Encarnacion) Benign essential HTN Elevated blood pressure reading Atypical chest pain Abnormal EKG SOB (shortness of breath) COPD (chronic obstructive pulmonary disease) Shingles Asthma Neoplasm of lip Surgical History (Updated 11/29/19 @ 14:59 by Belkis Isidro MD) History of carpal tunnel release Family History (Updated 08/24/20 @ 14:20 by Rebecca Humphrey RN) Cancer Son Denies family history of Diabetes CAD (coronary artery disease) Clotting disorder Dementia Chronic kidney disease (CKD) Suicide Anesthesia complication Bleeding disorder Lung disease Stroke Social History Smoking and tobacco/nicotine status: current some day tobacco/nicotine user Alcohol intake: current Alcohol intake frequency: 3 or more drinks per day Substance/Drug Use: never Pertinent Exam Findings alert, oriented x 3, operative site marked and procedure specific exam findings Please refer to detailed orthopedic examination on 01/27/2024 listed below: bilateral Knee exam -Patellar crepitus with range of motion tender to palpation over the retropatellar space with positive patellar grind -ROM 0-115 degree -5 degree varus deformity bilaterally -Medial joint line tenderness, lateral joint line tenderness -Negative Jerry's -Stable varus valgus stress -negative Leland's test but pain noted no palpable click -Patient can wiggle toes and has a pedal pulse of 2+. Recommendations Surgery/Procedure today Other Plans: Plan to proceed to the OR today for a right total knee arthroplasty?Kevin robotic assisted. He is clear the preoperative clearance process. He states his overall health is at baseline no new changes in his health. Patient denies any urinary symptoms. At this point time patient is ready proceed with right total knee arthroplasty once again he understands the ins and outs of procedure the risk benefits complication alternatives surgery and through shared decision-orestes wilson elects proceed with surgical intervention. All questions answered at this time. Coding Level of Care Code Acute Code for Chg Fwd
--- NOTE | 2024-03-15 07:00 | ANES.PREANE2 ---
Pre-Anesthetic Assessment Height/Weight: Height 1.73 m Weight 99.337 kg Temp Pulse Resp BP Pulse Ox O2 Del Method 97.4 F L 79 18 158/93 94 Room Air 03/15/24 06:01 03/15/24 06:01 03/15/24 06:01 03/15/24 06:01 03/15/24 06:01 03/15/24 06:01 Preop Diagnosis: Right knee degenerative joint disease Operation Date: 03/15/24 07:00 Proposed Procedures p Kevin Robot Total Knee Arthroplasty(Right) - Shiv Vang DO Familial anesthetic complications: None Was Beta Cristi taken within 24 hours: N/A Was Clonidine taken within 24 hours: N/A Last intake: Intake Last Liquid Date 03/14/24 Last Liquid Time 15:00 Last Solid Date 03/14/24 Last Solid Time 15:00 Social No alcohol and No tobacco Exam alert, oriented x 3, clear to auscultation bilaterally and regular rate & rhythm Airway Mallampati: Class III Dentition: chipped Pulmonary Chronic Obstructive Pulmonary Disease (2L O2 (with poor compliance)) CV/HEM Hypertension Anesthetic Plan ASA status: 4 Anesthesia: Regional (specify below) Risk of > 500 ml blood loss (7ml/kg in children): No Medications/Allergies Home Medications Medication Instructions Recorded Confirmed Last Taken Type naproxen sodium 220 mg tablet 220 mg PO BID PRN Pain 02/10/20 03/15/24 03/11/24 History (Aleve) amlodipine 5 mg tablet 5 mg PO DAILY 30 days #30 tabs 01/22/21 03/15/24 03/14/24 Rx Right medial manager mechanical brace #1 ea 10/31/23 01/27/24 Unknown Rx cyclobenzaprine 10 mg tablet 10 mg PO BID PRN Spasms 03/09/24 03/15/24 03/14/24 History levalbuterol tartrate 45 2 inh inhalation Q6H 03/09/24 03/15/24 03/14/24 History mcg/actuation aerosol inhaler (Xopenex HFA) Allergies Allergy/AdvReac Type Severity Reaction Status Date / Time No Known Allergies Allergy Verified 03/09/24 12:00 Current Medications Generic Name Dose Route Start Last Admin Trade Name Freq PRN Reason Stop Dose Admin Sodium Chloride 1,000 mls @ 30 mls/hr 03/15/24 06:00 03/15/24 06:30 Sodium Chloride 0.9% IV 03/16/24 05:59 30 mls/hr .Q24H KATHE Administration PFSH Anesthesia Medical History Benign essential HTN Elevated blood pressure reading Atypical chest pain Abnormal EKG SOB (shortness of breath) COPD (chronic obstructive pulmonary disease) Shingles Asthma Neoplasm of lip Surgical History History of carpal tunnel release Family History Son Cancer Denies family history of Diabetes CAD (coronary artery disease) Clotting disorder Dementia Chronic kidney disease (CKD) Suicide Anesthesia complication Bleeding disorder Lung disease Stroke Social History Smoking and tobacco/nicotine status: current some day tobacco/nicotine user Alcohol intake: current Alcohol intake frequency: 3 or more drinks per day Substance/Drug Use: never Data Anesthesia 03/15/24 06:29 03/15/24 06:29 Short CBC 03/15/24 Range/Units 06:29 WBC 6.20 (3.29-11.43) 10^3/uL Hgb 17.00 H (11.27-16.99) g/dL Hct 50.6 (37-53) % MCV 96.7 (82-101) fl Plt Count 216 (157-399) 10^3/cmm Neut % (Auto) 45.3 % Neut # (Auto) 2.81 (1.8-7.7) 10^3/uL Cardiac Studies: Echocardiogram Ultrasound 01/19/20 Sestamibi Stress Test (Cardiology) 01/19/20
--- NOTE | 2024-03-15 07:01 | ANES.PROC ---
Anesthesia Procedures Procedure/Date: 03/15/24 Nerve Block ^: Nerve Block 1: Main Anesthesia: spinal anesthesia block Time Out Performed: Yes Consent: requested by attending/covering physician, from patient, from other, risks and benefits reviewed and patient agrees to proceed Nerve block location: adductor canal (R) Anesthesia monitors applied: pulse oximetry, EKG, BP cuff and oxygen Nerve block position: supine Anesthetic Used: ropivicaine 0.5% (30 ml) and with decadron (4 mg) Ultrasound used to: recognize landmarks and visualize and ID femerol nerve Nerve Stimulator Used?: No Interscalene/Femoral BLK: 4 stimuplex 21 g needle used for position and inplane approach, visualize local anesthetic spread and no vascular puncture identified Injection: neg aspiration of heme Patient Tolerated Procedure: well Complications: none Additional Comments: Versed 2 mg administered IV
--- NOTE | 2024-03-15 07:04 | PC.NURSE ---
pt time out performed for adductor canal block anesthesia requested 2mg of versed for pt medication administered and block was performed. Pt was given oxygen through a nasal cannula and placed on a heart monitor. Block was performed by injecting 0.5% ropivicaine into a adductor canal for post knee surgery pain control.
[2024-03-15 07:09] LABS: Blood Urea Nitrogen 18 mg/dL (8-23); Calcium 9.6 mg/dL (8.5-10.5); Carbon Dioxide 34 mmol/L (22-29); Chloride 102 mmol/L (98-107); Creatinine Clr Calc Pharmacy 51.4191; Glucose 97 mg/dL (65-115); Osmolality Calculated 300 mOsm/kg (285-295); Sodium 144 mmol/L (136-145)
[2024-03-15] MEDS: ceFAZolin 2,000 MG in sodium chloride 0.9% (plus) 50 ML 100 MG IV ×3 (07:12→22:59)
[2024-03-15] MEDS: tranexamic acid 1,000 mg/10mL SDV 1000 MG IV (08:02)
[2024-03-15] MEDS: ROPivacaine 0.2% Premix 100 mL 200 MG XX (08:22)
[2024-03-15] MEDS: ketorolac 30 mg/mL INJ XX (08:23)
[2024-03-15] MEDS: EPINEPHrine 1 mg/mL INJ XX (08:23)
[2024-03-15] MEDS: tranexamic acid 1,000 mg/10mL SDV 1000 MG XX (08:24)
--- NOTE | 2024-03-15 08:29 | PC.NURSE ---
Block Dr. Adams performed a right adductor canal block using 30ml of 0.5% ropivicaine.
--- NOTE | 2024-03-15 10:03 | W.PM.BPON ---
Date of Procedure: 03/15/2024 Surgeon: Shiv Vang DO Director Instructional Material(s): Jacinto Vang PA-C Procedure(s) performed: Right total knee arthroplasty?Kevin robotic assisted Findings of the procedure(s): Patient found to have severe right knee degenerative joint disease underwent procedure as planned without issues or complications Estimated blood loss: 25 mL Specimen(s) removed: Tibia femur and patellar bone cuts removed Post-operative diagnosis: Right knee severe degenerative joint disease
--- NOTE | 2024-03-15 10:04 | P.OP_ITS ---
Operative Report Date of procedure: March 15, 2024 Surgeon: Shiv Vang DO Detention Worker: Jacinto Vang PA-C: PA was necessary for assistance in this case with leg positioning retraction and protection of neurovascular structures as well as assistance in implantation wound closure and dressing application. Procedure: Preoperative diagnosis: Right knee degenerative joint disease Post-op diagnosis: Same Procedure done: Right total knee arthroplasty, cemented?robotic assisted Kevin Implants: Mervin triathlon size 5 femur CR cemented?Right Mervin triathlon size? 6 tibia universal baseplate cemented [place] triathlon asymmetric patella size 29 mm [place] triathlon polyethylene 10mm Surgeon: Shiv Vang DO Estimated blood?loss: 25 mL Tourniquet 77mins IV fluids: 1100 mL Urine output: 200 mL Complications: None Condition: stable Disposition: floor Brief History: Patient is a 83-year-old male with with chronic?Right knee degenerative joint disease.? Patient has been worked up in the outpatient setting in the orthopedic office at this point time through shared decision making given? relt-ai-egal arthritis as well as failed conservative treatment, and pt would?like to proceed with a?Right total knee arthroplasty.? Through shared decision making elected to proceed with surgical intervention for?Right total knee arthroplasty.? We talked about continued conservative treatment and surgical intervention as far as the risk benefits complications alternatives surgical and nonsurgical treatment options.? At this point time understanding patient risks with surgery he agrees to proceed with surgical intervention.? Once again? risk with surgery include but are not?limited to make it better make it worse blood clot, heart attack, stroke, on the table, infection, injury to nerves or vessels, persistent pain, arthrofibrosis, implant failure.? Understanding these risks patient agrees to proceed with surgical intervention consent was obtained in the office.? All questions answered. Procedure: Patient was seen and evaluated in the preoperative holding area.? Consent was reviewed and signed with patient with plan for?Right total knee arthroplasty.? All questions answered.? Correct extremity marked.? Patient seen and evaluated by the anesthesia department and once cleared for surgery was taken back to the operative suite.? Patient was placed into a supine position on the OR table.? All bony prominences were well-padded.? Patient was appropriately secured to the bed.? Patient underwent anesthesia per the anesthesia department.? ? Boateng catheter was placed.? A nonsterile tourniquet was applied to the?Right thigh.? At this point in time a final timeout performed.? Patient received appropriate preoperative antibiotics and TXA. Next the?Right?lower extremity was then prepped and draped in standard orthopedic fashion. Esmarch tourniquet was used exsanguinate the?Right?lower extremity.? Tourniquet was insufflated to 250 mmHg. A standard anterior incision was made over midline of the knee.? Sharp scalpel excision through skin and subcutaneous tissue full-thickness skin flaps were made.? Fascia was elevated off of the extensor retinaculum was stable with medial parapatellar arthrotomy was then made.? The performed standard sequential releases..? Immediately on entry into the joint patient was found to have severe eburnated bone and tricompartmental arthritic changes noted.? With significant osteophyte formation.? Next the the patella was then stuffed and the knee was then flexed.?? Nate was placed superiorly around the anterior aspect of the femur this was freed of synovium and I subsequently then placed by 2 femur pins to establish my femur arrays for the Kevin robot.? These were then placed bicortically and? femur array was then appropriately secured with appropriate visualization.? Next attention was turned towards the tibial rays.? These were then drilled sequentially bicortically in parallel fashion and intraincisional.? I then placed my guide as well as my tibial array on in place.? This was appropriately secured and had excellent visualization with the Kevin robot.? Next the tibial c heckpoint as well as femur checkpoint were then placed.? At this point time I then subsequently established my head center as well as my medial?lateral malleoli as well as my checkpoints.? Next utilizing standard Kevin technology I then mapped out the appropriate points and confirmation points around the femur as well as the tibia in standard fashion.? Once this was then done I then removed all osteophytes in preparation for dynamic testing.? All osteophytes were removed as well as I removed the ACL and the PCL was excised due to its significant tearing and degeneration noted.? At this point time the knee was brought into full extension and we performed our standard evaluation of our gap balancing stressing his?ligaments and extension as well as flexion appropriate adjustments were made to have appropriate gap balancing in both flexion and extension.? This plan for final counts.? We get a preoperative plan evaluating our implants which was a size 5 femur and a size 6 tibia.? Next we b rought in the Kevin robot and sequentially made our femur cuts.? All excess bony cuts were then removed.? Finally we made our tibial cut.? Once this was done a standard PCL retractor was then placed into this position I excised the medial and?lateral meniscus.? The tibial cut was then subsequently removed all excess bony debris was removed.? I then utilized a?lamina sales engineer account manager and remove the posterior osteophytes.? At this point time sized the tibia and confirmed this was a size 6.? I utilized our blunt probe to establish rotation of tibial implant.? Once this was done I then placed my tibia size 6 trial in appropriate position and then subsequently placed tibial pins to hold this into place, then trialed to a size 10 mm poly as well as a size 5 femur which was appropriately impacted in place knee was then subsequently brought into extension. Trials were then assessed,? this was stable with varus valgus stress in extension as well as had symmetrical translation when brought into flexion demonstrating symmetrical gaps. I had excellent balance gaps in flexion and extension with varus and valgus stresses.? At this point I was satisfied with these implants these were then verified and opened on the back table size 6 tibia, size 5 femur,? size 10 mm polythickness.? We did confirm appropriate gap balancing and stresses as well as alignment utilizing? Kevin and were satisfied with this plan.? ?At this point time with my trials in place I then towel clip the patella everted this made appropriate measurements subsequently utilizing freehand technique performed by patellar resurfacing this was confirmed to be appropriate resection and subsequently sized to be a 29 mm asymmetric.? My drill peg guides were then clamped and appropriate position and appropriate position in the patella for appropriate tracking and parallel with the joint.? Pegs were drilled trial implant was placed and the knee was then subsequently ranged and found to have excellent patellar tracking.? Femur pegs were then drilled.? All checkpoints as well as guidepins and arrays were removed and appropriate counts made. Satisfied with our tibial placement rotation I then utilized the keel punch and prepped the tibia.? At this point time all of our trial implants were removed.?? The wound bed? was thoroughly irrigated and dried and prepped for cementation.? Cement was mixed on the back table.? Once cement was ready this was then covered onto the tibia and the tibial baseplate was then impacted and all excess cement was removed.? Next the polyethylene was then impacted into place on the tibial baseplate.? Next cement was placed onto the femur as well as under the femur implants and impacted in to place and all excess cement was extruded and removed.? Knee was taken into full extension? to clear all excess cement was removed.? Warm saline was placed over the joint.? I then towel clip patella and dried for cementation. cemented the patella into place.? This was all clamped and the cement was allowed to cure.? Thorough irrigation performed with pulse?lavage.? I then placed my periarticular injection while the cement was curing.? Once cured the knee was taken through range of motion and had ex cellent stability and gaps were balanced in flexion and extension.? Tourniquet was then deflated. hemostasis satisfactory with electrocautery.? Next I then subsequently closed the capsule with Ethibond suture as well as a running strata fix suture.? Knee was then taken through range of motion 20 times.? Next the skin was then closed in?layered fashion of running stratifix sutures of deep and subcutenous tissue and skin.? ?closed in flexion and Prineo glue was then placed over the incision this allowed to cure.? Incision was covered with Silverlon, with ABDs soft roll and Mina wrap.? Patient was then awakened from anesthesia and taken to PACU in stable condition. Disposition: Patient taken to PACU in stable condition will be admitted to the floor for pain control PT/OT weight-bear as tolerated?RIght?lower extremity dressing changes as needed, DVT prophylaxis. Pain control. Patient will receive appropriate postoperative antibiotics. patient will be seen today by the internal medicine team for medical management.? Patient will follow up with the office in 2 weeks.? Patient understands agrees with current plan.? All questions answered.
--- NOTE | 2024-03-15 10:08 | XRR_ITS ---
PROCEDURE INFORMATION: Exam: XR Right Knee Exam date and time: 03/15/2024 10:24 AM Age: 83 years old Clinical indication: Device placement; Joint replacement hardware; Prior surgery; Surgery date: Post-operative (0-2 days); Surgery type: Right knee; Additional info: Status post right tka TECHNIQUE: Imaging protocol: Radiologic exam of the right knee. Views: 1 or 2 views. COMPARISON: CT knee RT [facility] [id number] 03/04/2024 1:35 PM FINDINGS: Bones/joints: Knee prosthesis is in place. No acute fracture or dislocation identified. Soft tissues: Soft tissue air within the joint space likely from surgery noted. XR/XR knee RT 1-2V [id number] IMPRESSION: Knee prosthesis in place with immediate postoperative changes.
--- NOTE | 2024-03-15 10:25 | PM.PACU ---
PACU note Narrative: Patient is an 83-year-old male just underwent a right total knee arthroplasty. Pt transferred to PACU in stable condition. Dressing is dry. pt is awake and alert. pt can wiggle toes and plantarflex and dorsiflex foot. pt able to perform straight leg raise, Femoral nerve intact. Distal pulses are palpable toes are warm and well-perfused. Cap refill is normal and under 2 seconds. Sensation to foot is intact. Pain is controlled. Exam: awake Disposition: admitted
[2024-03-15] MEDS: metoprolol tartrate 1 mg/1 mL SDV 5 mL 2 MG IVP (10:30)
--- NOTE | 2024-03-15 10:40 | P.CONIM_ITS ---
Documented by User: Kaye NaseemSONJA koehler STDTREY 03/15/24 11:30 Providers/Reason For Consult 2 Attending Physician: Shiv Vang DO Primary Care Provider: Simon Mane MD History of Present Illness History of Present Illness Nasir Orourke is a 83 year old male with PMH of HTN, COPD, GÓMEZ. Patient is status post-op R. knee arthroplasty being admitted for monitoring and maintenance of his post-op care and chronic health conditions. Patient denies chest pain, SOB, headache, vision changes, abdominal pain, fever, chills, sweats, or numbness/tingling in extremities. Patient had difficulty answering questions and questions needed to be repeated multiple times as he was still feeling the effects of anesthesia when questioned. Medications/Allergies Home Medications Medication Instructions Recorded Confirmed Last Taken Type naproxen sodium 220 mg tablet 220 mg PO BID PRN Pain 02/10/20 03/15/24 03/11/24 History (Aleve) amlodipine 5 mg tablet 5 mg PO DAILY 30 days #30 tabs 01/22/21 03/15/24 03/14/24 Rx Right medial cmm inspector brace #1 ea 10/31/23 01/27/24 Unknown Rx cyclobenzaprine 10 mg tablet 10 mg PO BID PRN Spasms 03/09/24 03/15/24 03/14/24 History levalbuterol tartrate 45 2 inh inhalation Q6H 03/09/24 03/15/24 03/14/24 History mcg/actuation aerosol inhaler (Xopenex HFA) Allergies Allergy/AdvReac Type Severity Reaction Status Date / Time No Known Allergies Allergy Verified 03/09/24 12:00 Current Medications Generic Name Dose Route Start Last Admin Trade Name Freq PRN Reason Stop Dose Admin Sodium Chloride 1,000 mls @ 30 mls/hr 03/15/24 06:00 03/15/24 08:55 Sodium Chloride 0.9% IV 03/16/24 05:59 Infused .Q24H KATHE Infusion Midazolam HCl 2 mg 03/15/24 05:48 03/15/24 06:50 Midazolam 1 Mg/Ml Inj 2 Ml IVP 2 mg Q5M PRN Administration Preop Anxiety PFSH Acute 2 PFSH: Medical History Benign essential HTN Elevated blood pressure reading Atypical chest pain Abnormal EKG SOB (shortness of breath) COPD (chronic obstructive pulmonary disease) Shingles Asthma Neoplasm of lip Surgical History History of carpal tunnel release Family History Son Cancer Denies family history of Diabetes CAD (coronary artery disease) Clotting disorder Dementia Chronic kidney disease (CKD) Suicide Anesthesia complication Bleeding disorder Lung disease Stroke Social History Smoking and tobacco/nicotine status: current some day tobacco/nicotine user Alcohol intake: current Alcohol intake frequency: 3 or more drinks per day Substance/Drug Use: never Vitals/I&O/Wt Last Vital Signs Temp 97.0 F L 03/15/24 10:15 Pulse 78 03/15/24 10:30 Resp 12 03/15/24 10:30 BP 158/77 03/15/24 10:30 Pulse Ox 96 03/15/24 10:30 O2 Del Method Nasal Cannula 03/15/24 10:30 O2 Flow Rate 3 03/15/24 10:30 03/14/24 03/15/24 03/15/24 22:59 06:59 14:59 Intake Total 100 / 100 1700 / 1700 Output Total 225 / 225 Balance 100 / 100 1475 / 1475 Weight last 48 hrs Weight 219 lb Physical Exam 2 Neck/C-Spine: OTHER: Increased neck circumference Chest: OTHER: Increased AP diameter Resp: OTHER: Bilateral lower lung wheezes. Bilateral chest pain expansion Cardio: OTHER: Normal rate and rhythm GI: OTHER: Soft, nontender with bowel sounds. Urinary Catheter Management: Boateng: Cath Placed During This Visit: yes Urinary Catheter Date of Insertion: 03/15/24 Urinary Catheter Time of Insertion: 07:35 Data 03/15/24 06:29 03/15/24 06:29 A&P Assessment and plan (1) Primary osteoarthritis of knees, bilateral: Post-op of R knee arthroplasty Pain management with hydromorphone .5mg q4hrs, ketorolac PRN, Oxycodone IR Eliquis 2.5mg BID for DVT PPX, continue for two weeks post-op with PT for improvement of mobility Continue docusate for bowel regimen Continue mandi-op antibiotic cefazolin (2) Benign essential HTN: Given metoprolol post-op 1x Continue home amlodipine dosage and monitor (3) COPD (chronic obstructive pulmonary disease): On 2L via nasal cannula Nebulizer albuterol treatment PRN Plan Possibly order BiPaP, uses BiPap or CPaP at home, likely GÓMEZ due to increased neck circumference Full Code Coding Level of Care Code 36788 Diagnoses Primary osteoarthritis of knees, bilateral M17.0 Benign essential HTN I10 COPD (chronic obstructive pulmonary disease) J44.9 Time Spent (min) 43 Documented by User: Anshul Bravo MD 03/15/24 11:31 Providers/Reason For Consult 2 Consulting Physician/Specialty*: Anshul Bravo MD, hospitalist Reason for Consult*: Medical management Requesting Physician: Dr. Vang History of Present Illness History of Present Illness Nasir Orourke is a 83 year old male with PMH of HTN, COPD, GÓMEZ. Patient is status post-op R. knee arthroplasty being admitted for monitoring and maintenance of his post-op care and chronic health conditions. Patient denies chest pain, SOB, headache, vision changes, abdominal pain, fever, chills, sweats, or numbness/tingling in extremities. Patient had difficulty answering questions and questions needed to be repeated multiple times as he was still feeling the effects of anesthesia when questioned. During surgery he had some high blood pressures. He received some metoprolol IV following surgery. He received general anesthesia, had an estimated blood loss that was minimal, and had no obvious complications of the procedure. Review of Systems 2 General: Reports: 10 or more systems reviewed and unremarkable except in HPI and below Medications/Allergies Home Medications Medication Instructions Recorded Confirmed Last Taken Type naproxen sodium 220 mg tablet 220 mg PO BID PRN Pain 02/10/20 03/15/24 03/11/24 History (Aleve) amlodipine 5 mg tablet 5 mg PO DAILY 30 days #30 tabs 01/22/21 03/15/24 03/14/24 Rx Right medial cmm inspector brace #1 ea 10/31/23 01/27/24 Unknown Rx cyclobenzaprine 10 mg tablet 10 mg PO BID PRN Spasms 03/09/24 03/15/24 03/14/24 History levalbuterol tartrate 45 2 inh inhalation Q6H 03/09/24 03/15/24 03/14/24 History mcg/actuation aerosol inhaler (Xopenex HFA) Allergies Allergy/AdvReac Type Severity Reaction Status Date / Time No Known Allergies Allergy Verified 03/09/24 12:00 PFSH Acute 2 PFSH: Medical History Benign essential HTN Elevated blood pressure reading Atypical chest pain Abnormal EKG SOB (shortness of breath) COPD (chronic obstructive pulmonary disease) Shingles Asthma Neoplasm of lip Surgical History History of carpal tunnel release Family History Son Cancer Denies family history of Diabetes CAD (coronary artery disease) Clotting disorder Dementia Chronic kidney disease (CKD) Suicide Anesthesia complication Bleeding disorder Lung disease Stroke Social History Smoking and tobacco/nicotine status: current some day tobacco/nicotine user Alcohol intake: current Alcohol intake frequency: 3 or more drinks per day Substance/Drug Use: never Physical Exam 2 Cardio: OTHER: Normal rate and rhythm. No murmur Extremity: NARRATIVE EXTREMITY EXAM: No cyanosis clubbing or edema, dressing in place right knee, clean and dry Urinary Catheter Management: Boateng: Cath Placed During This Visit: yes Data 03/15/24 06:29 03/15/24 06:29 Other Labs: EKG on the , per my review demonstrates sinus rhythm, left axis deviation, right bundle branch block A&P Assessment and plan (1) Primary osteoarthritis of knees, bilateral: Post-op of R knee arthroplasty. He is directly postoperative. Pain management with hydromorphone .5mg q4hrs, ketorolac PRN, Oxycodone IR Eliquis 2.5mg BID for DVT PPX, continue for two weeks post-op with PT for improvement of mobility Continue docusate for bowel regimen Continue mandi-op antibiotic cefazolin CBC and BMP in the morning. Check for postoperative acute blood loss anemia. (2) Benign essential HTN: Given metoprolol post-op 1x Continue home amlodipine dosage and monitor. He did not take it this morning so we will administer it now. (3) COPD (chronic obstructive pulmonary disease): On 2L via nasal cannula Nebulizer albuterol treatment PRN Add DuoNeb 4 times daily Budesonide twice daily Note that he is a CO2 retainer. This can be determined by reviewing his metabolic profile. Plan Obstructive sleep apnea. He reports he has a CPAP or BiPAP at home. Will order BiPAP, and respiratory can investigate. He reports he has 2 L of oxygen bled into the system. Full Code Thank you for this consultation Harveymathieu fair suffice for his DVT prophylaxis Consult Attestations 2 Medical Necessity Statement: As per primary Diagnoses Primary osteoarthritis of knees, bilateral M17.0 Benign essential HTN I10 COPD (chronic obstructive pulmonary disease) J44.9 Time Spent (min) 43
--- NOTE | 2024-03-15 10:50 | ANE.PACU2 ---
Inpatient post-anesthesia follow up: Airway intact: Yes Vital signs: Temperature 98.0 F Pulse Rate 87 Respiratory Rate 18 Blood Pressure 156/84 Pulse Oximetry 93 Oxygen Delivery Me thod Nasal Cannula Oxygen Flow Rate 2 Fraction of Inspir ed Oxygen Hydration adequate: Yes Nausea and vomiting: No Pain level: 1 Mental status: Baseline
[2024-03-15] MEDS: amlodipine 5 mg Tablet PO (11:35)
[2024-03-15] MEDS: ketorolac 30 mg/mL INJ 15 MG IVP (11:35)
[2024-03-15] MEDS: lactated ringers 1,000 ML 100 ML IV ×2 (11:39→22:28)
[2024-03-15] MEDS: chlorhexidine gluconate 0.12% Btl 473 mL 30 ML MUCOUS MEM ×3 (14:04→22:31)
[2024-03-15] MEDS: ipratropium-albuterol 3 mL Neb INHALATION ×2 (16:08→20:21)
[2024-03-15] MEDS: tranexamic acid 1,000 MG/100 ML PREMIX 600 MG IV (16:10)
[2024-03-15] MEDS: iron polysaccharide complex 150 mg Capsule PO (17:53)
[2024-03-15] MEDS: calcium carb-vit d 600mg/400unit 1 Tablet 1 EACH PO (17:54)
[2024-03-15] MEDS: sennosides-docusate Tablet 2 TAB PO (17:54)
[2024-03-15] MEDS: mupirocin oint 22 gm 1 APPLIC NASAL (17:54)
[2024-03-15] MEDS: TRAMadol 50 mg Tablet PO (17:54)
[2024-03-15] MEDS: docusate sodium 100 mg Capsule PO (17:54)
[2024-03-15] MEDS: budesonide 0.5 mg/2 mL Neb INHALATION (20:21)
[2024-03-15] MEDS: oxyCODONE 5 mg IR Tab/Cap PO (22:39)
[2024-03-16] VITALS (7 sets, daily range): BP systolic 109–130; BP diastolic 65–69; PULSE 82–101; RESP 16–20; TEMP 36.4–36.9; O2SAT 93–97
[2024-03-16 05:31] LABS: Basophils % 0.3 %; Hematocrit 41.4 % (37-53); Lymphocytes # 0.9 10^3/uL (0.8-4.8); Lymphocytes % 5.5 %; Mean Corpuscular HGB Conc 32.6 g/dL (30-55); Mean Corpuscular Hemoglobin 32.5 pg (27-33); Mean Corpuscular Volume 99.8 fl (82-101); Monocytes # 1.7 10^3/uL (0.2-0.9); Monocytes % 11.2 %; Neutrophils # 12.84 10^3/uL (1.8-7.7); Neutrophils % 82.5 %; Nucleated Red Blood Cells % 0 %; Platelet Count 190 10^3/cmm (157-399); Red Blood Count 4.15 10^6/uL (3.85-5.65); Red Cell Distribution Width 13.4 % (12.1-15.1); White Blood Count 15.55 10^3/uL (3.29-11.43)
[2024-03-16] MEDS: oxyCODONE 5 mg IR Tab/Cap PO (05:49)
[2024-03-16] MEDS: acetaminophen 1,000 MG/100 ML PIGGYBACK 400 MG IV (05:51)
[2024-03-16 05:53] LABS: Anion Gap 12.8 (5-19); Blood Urea Nitrogen 22 mg/dL (8-23); Calcium 8.5 mg/dL (8.5-10.5); Carbon Dioxide 28 mmol/L (22-29); Chloride 101 mmol/L (98-107); Creatinine Clr Calc Pharmacy 52.7473; Glucose 144 mg/dL (65-115); Osmolality Calculated 292 mOsm/kg (285-295); Potassium 3.8 mmol/L (3.5-5.1); Sodium 138 mmol/L (136-145)
[2024-03-16] MEDS: ceFAZolin 2,000 MG in sodium chloride 0.9% (plus) 50 ML 100 MG IV (05:56)
--- NOTE | 2024-03-16 07:22 | P.DS_ITS ---
Discharge Providers Date of Admission: 03/15/24 09:37 Date of Discharge: March 16, 2024 Attending Provider at Admission: Shiv Vang DO Attending Provider at Discharge: Shiv Vang DO Consults: Dr. Bravo?hospitalist Primary Care Provider: Simon Mane MD Diagnoses at Discharge Discharge Diagnosis (1) Primary osteoarthritis of knees, bilateral: Status: Inactive (2) Benign essential HTN: Status: Acute (3) COPD (chronic obstructive pulmonary disease): Status: Acute Reason for Visit Reason for Visit: M17.0 Brief History: Status post right total knee arthroplasty Hospital Course Hospital Course Patient presented to the preoperative holding area with plan for right total knee arthroplasty after patient has been worked up in the outpatient setting for failed conservative treatment of right knee degenerative joint disease. Once cleared by anesthesia for surgery patient subsequently was taken back to the operative suite underwent anesthesia per anesthesia department and then subsequently underwent a right total knee arthroplasty. Procedure was performed without any complications patient was taken to PACU in stable condition patient recovered well in PACU and then was admitted to the floor postoperatively i nternal medicine was consulted and on board for medical management and assistance with care. Patient received appropriate PT/OT, postoperative antibiotics, postoperative TXA, pain control, postoperative DVT prophylaxis. Elevation and ice. Patient encouraged for knee range of motion allowed weightbearing as tolerated to the operative lower extremity. Dressing was changed as needed, labs were monitored daily. Patient recovered well postoperatively and worked well and progressed well with therapy. It was determined on postoperative day 1 the patient was stable for discharge from an orthopedic standpoint and medicine. Patient was comfortable with discharge and plan was discharged home. Patient received appropriate discharge instructions as well as pain medication and DVT prophylaxis postoperatively. Given appropriate instructions for dressing management. Patient will follow-up with Dr. Vang/orthopedics in the office in 2 weeks. All questions answered. Understand if there is any issues questions or concerns and contact the office. Physical Exam Narrative: Examination right lower extremity dressings on in place clean dry and intact no evidence of saturation compartments are soft compressible calf soft nontender normal postoperative pain and swelling at the right knee. Patient is able to wiggle the toes as well as plantarflex and dorsiflex ankle sensations intact light touch distally. Distal pulses palpable. Urinary Catheter Management: Boateng: Cath Placed During This Visit: yes, but has since been removed by the nurse Reason for Continuing Indwelling Catheter: Decision to DC Catheter Urinary Catheter Date of Insertion: 03/15/24 Urinary Catheter Time of Insertion: 07:35 Date Urinary Catheter Removed: 03/16/24 Time Urinary Catheter Discontinued: 06:05 Discharge Data Studies Completed and Pending Completed Studies During Hospitalization Category Date Time Status XR knee RT 1-2V 41244 Routine Exams 03/15/24 10:08 Completed Pending at discharge Category Date Time Status Basic Metabolic Panel AM LABS Lab 03/17/24 04:00 Ordered Basic Metabolic Panel AM LABS Lab 03/18/24 04:00 Ordered Complete Blood Count w/Auto AM LABS Lab 03/17/24 04:00 Ordered Complete Blood Count w/Auto AM LABS Lab 03/18/24 04:00 Ordered Radiology Impressions Knee X-Ray 03/15/24 10:08 IMPRESSION: Knee prosthesis in place with immediate postoperative changes. Laboratory Results WBC 15.55 10^3/uL (3.29-11.43) H 03/16/24 04:21 RBC 4.15 10^6/uL (3.85-5.65) 03/16/24 04:21 Hgb 13.50 g/dL (11.27-16.99) 03/16/24 04:21 Hct 41.4 % (37-53) 03/16/24 04:21 MCV 99.8 fl (82-101) 03/16/24 04:21 MCH 32.5 pg (27-33) 03/16/24 04:21 MCHC 32.6 g/dL (30-55) 03/16/24 04:21 RDW 13.4 % (12.1-15.1) 03/16/24 04:21 Plt Count 190 10^3/cmm (157-399) 03/16/24 04:21 MPV 11.0 fL (7.4-10.4) H 03/16/24 04:21 Neut % (Auto) 82.5 % 03/16/24 04:21 Lymph % (Auto) 5.5 % 03/16/24 04:21 [place] % (Auto) 11.2 % 03/16/24 04:21 Eos % (Auto) 0.0 % 03/16/24 04:21 Baso % (Auto) 0.3 % 03/16/24 04:21 Neut # (Auto) 12.84 10^3/uL (1.8-7.7) H 03/16/24 04:21 Lymph # (Auto) 0.9 10^3/uL (0.8-4.8) 03/16/24 04:21 [place] # (Auto) 1.7 10^3/uL (0.2-0.9) H 03/16/24 04:21 Eos # (Auto) 0.0 10^3/uL (0.0-0.8) 03/16/24 04:21 Baso # (Auto) 0.0 10^3/uL (0.0-0.1) 03/16/24 04:21 Nucleated RBC % (auto) 0 % 03/16/24 04:21 Nucleated RBCs # 0.0 /100WBC 03/16/24 04:21 Sodium 138 mmol/L (136-145) 03/16/24 04:21 Potassium 3.8 mmol/L (3.5-5.1) 03/16/24 04:21 Chloride 101 mmol/L (98-107) 03/16/24 04:21 Carbon Dioxide 28 mmol/L (22-29) 03/16/24 04:21 Anion Gap 12.8 (5-19) 03/16/24 04:21 BUN 22 mg/dL (8-23) 03/16/24 04:21 Creatinine 1.2 mg/dL (0.7-1.2) 03/16/24 04:21 GFR Calculation Not Reportable 03/16/24 04:21 Glucose 144 mg/dL (65-115) H 03/16/24 04:21 Calculated Osmolality 292 mOsm/kg (285-295) 03/16/24 04:21 Calcium 8.5 mg/dL (8.5-10.5) 03/16/24 04:21 Blood Type O Negative 03/15/24 06:29 Rho(D) Type Rh negative 03/15/24 06:29 Antibody Screen Negative 03/15/24 06:29 Vitals Last Vital Signs Temp 97.6 F 03/16/24 04:35 Pulse 92 03/16/24 04:35 Resp 16 03/16/24 05:49 BP 119/69 03/16/24 04:35 Pulse Ox 93 03/16/24 04:35 O2 Del Method Nasal Cannula 03/15/24 20:21 O2 Flow Rate 2 09/23/24 20:21 Discharge Plan Discharge Patient Disposition: Home Condition: Stable Prescriptions: New Calcium 600 + D(3) 600 mg-10 mcg (400 unit) tablet 1 tab PO DAILY 30 Days Qty: 30 0RF Continued cyclobenzaprine 10 mg tablet 10 mg PO BID PRN (Reason: Spasms) levalbuterol tartrate [Xopenex HFA] 45 mcg/actuation HFA aerosol inhaler 2 inh inhalation Q6H amlodipine 5 mg tablet 5 mg PO DAILY 30 Days Qty: 30 5RF Held naproxen sodium [Aleve] 220 mg tablet 220 mg PO BID PRN (Reason: Pain) Hold Instructions: Resume on 03/30/24. No Action (DME) Right medial mold unloader brace See Rx Instructions .Route .MEDSUPPLY Qty: 1 0RF Rx Instructions: As directed oxycodone 5 mg tablet 5 mg PO Q6H PRN (Reason: pain postop) 7 Days Qty: 28 0RF Discharge Orders: Discharge Order (Routine); Ordered 03/16/24 Ordered By: Shiv Vang Other Ambulatory Orders: Physical Therapy Eval and Treat Outpatient (Order) Timeframe: 3 Days Facility: [facility] - Location: Physical Therapy Ordered By: Anshul Bravo Referrals: [facility] Outpatient Therapy [Outside] (They will call you when you need to follow up at the [facility] for Outpt Therapy. ) Simon Mane MD [Primary Care Provider] - 03/19/24 10:30 am Shiv Vang DO [Physician] - 03/30/24 10:30 am Discharge Diet: Regular Discharge Activity: Limit activity as instructed and Use walker/crutches as instructed Patient Instructions: Oxycodone, Rapid Release (By mouth), Apixaban (By mouth), Acute Wound Care (DC), Total Knee Replacement (GEN), Joint Replacement Stoplight, Opioid Safety, Post Anesthesia Care Activity Restrictions/Additional Instructions: Orthopedic Discharge instructions: Keep incisions clean dry and intact, leave Silverlon bandage dressings on in place for 7 days after that may rinse incisions with warm soapy water pat dry and redress with a dry dressing. Patient may weight-bear as tolerate to the operative extremity Utilize crutches as needed Encourage knee range of motion Ice and elevate as needed for pain and swelling Take pain medication as prescribed Take antinausea medication as needed Pain medication can cause constipation. take [id number] stool softeners and or MiraLAX. Take prescribed Eliquis twice daily for the next 14 days for blood clot prevention May supplement for pain with ibuprofen [id number] as needed No baths or soaks Follow-up in the orthopedic office in 2 weeks Contact the office for any questions or concerns Discharge Attestations Time Spent in Discharge Care*: less than 30 min Quality Metrics Clinical Quality Measures [ No reported AMI, CVA or VTE this stay] Coding Level of Care Code Acute Code for Chg Fwd Diagnoses Primary osteoarthritis of knees, bilateral M17.0 Benign essential HTN I10 COPD (chronic obstructive pulmonary disease) J44.9 Time Spent (min) 25
[2024-03-16] MEDS: ipratropium-albuterol 3 mL Neb INHALATION (07:39)
[2024-03-16] MEDS: budesonide 0.5 mg/2 mL Neb INHALATION (07:39)
[2024-03-16] MEDS: docusate sodium 100 mg Capsule PO (07:46)
[2024-03-16] MEDS: sennosides-docusate Tablet 2 TAB PO (07:46)
[2024-03-16] MEDS: iron polysaccharide complex 150 mg Capsule PO (07:47)
[2024-03-16] MEDS: multivitamin therapeutic Tablet 1 TAB PO (07:47)
[2024-03-16] MEDS: calcium carb-vit d 600mg/400unit 1 Tablet 1 EACH PO (07:47)
[2024-03-16] MEDS: apixaban 5 mg Tablet 2.5 MG PO (07:47)
[2024-03-16] MEDS: amlodipine 5 mg Tablet PO (07:47)
[2024-03-16] MEDS: mupirocin oint 22 gm 1 APPLIC NASAL (07:51)
[2024-03-16] MEDS: chlorhexidine gluconate 0.12% Btl 473 mL 30 ML MUCOUS MEM (07:51)
--- NOTE | 2024-03-16 08:10 | P.PN_ITS ---
Documented by User: SONJA Jeronimo STDTREY 03/16/24 09:04 Subjective 2 Subjective: Patient is doing well. His pain is well managed and has been walking with PT. Boateng was pulled this morning in preparation for possible discharge today. Patient was coughing up phlegm when seen this morning. Patient endorses a little bit of SOB and denies chest pain, abdominal pain, headache, n/v, numbness or tingling in extremities, chills or sweats. Vitals/I&O/Wt Last Vital Signs Temp 97.7 F 03/16/24 07:51 Pulse 85 03/16/24 07:51 Resp 20 H 03/16/24 07:51 BP 130/69 03/16/24 07:51 Pulse Ox 96 03/16/24 07:51 O2 Del Method Nasal Cannula 03/16/24 07:51 O2 Flow Rate 1.5 03/16/24 07:30 03/15/24 03/16/24 03/16/24 22:59 06:59 14:59 Intake Total 2380 / 4590 600 / 5190 Output Total 450 / 675 600 / 1275 Balance 1930 / 3915 0 / 3915 Weight last 48 hrs Weight 230 lb 8 oz Weight 219 lb Weight 219 lb Physical Exam 2 Const: OTHER: Alert, talkative Neck/C-Spine: OTHER: Supple without thyromegaly Resp: OTHER: Bilateral slight wheeze, normal chest wall expansion. Tachyneic Cardio: OTHER: Normal rate and rhythm without murmurs, rubs, or gallops GI: OTHER: Firm, Non-distended, nontender with normal bowel sounds Extremity: OTHER: Right leg completely wrapped. No edema or cyanosis noted Urinary Catheter Management: Boateng: Cath Placed During This Visit: yes, but has since been removed by the nurse Reason for Continuing Indwelling Catheter: Decision to DC Catheter Urinary Catheter Date of Insertion: 03/15/24 Urinary Catheter Time of Insertion: 07:35 Date Urinary Catheter Removed: 03/16/24 Time Urinary Catheter Discontinued: 06:05 Data 03/16/24 04:21 03/16/24 04:21 A&P Assessment and plan (1) Primary osteoarthritis of knees, bilateral: Continue hydromorphone, ketorolac, oxycodone IR until discharged by ortho Eliquis 2.5 mg BID for DVT for two weeks with PT Docusate for bowel regimen Essence-op antibiotic cefazolin Had high WBCs today likely secondary to demargination No signs of acute blood los, normal Hemoglobin (2) COPD (chronic obstructive pulmonary disease): Continue Nasal Cannula at 2L Nebulizer of albuterol PRN DuoNeb 4x daily Budesonide 2x daily (3) Benign essential HTN: Continue home amlodipine dosage Plan Patient is scheduled to be discharged today, at that time, medications should be followed according to discharge orders Patient should continue to use home BiPap or CPap once discharged for GÓMEZ -Full code Coding Level of Care Code 46112 Diagnoses Primary osteoarthritis of knees, bilateral M17.0 COPD (chronic obstructive pulmonary disease) J44.9 Benign essential HTN I10 Time Spent (min) 16 Documented by User: Anshul Bravo MD 03/16/24 09:10 Subjective 2 Medications: Reviewed: Yes Physical Exam 2 Urinary Catheter Management: Boateng: Cath Placed During This Visit: yes, but has since been removed by the nurse Data 03/16/24 04:21 03/16/24 04:21 A&P Assessment and plan (1) Primary osteoarthritis of knees, bilateral: (2) COPD (chronic obstructive pulmonary disease): (3) Benign essential HTN: Continue home amlodipine dosage Blood pressure appears to have fair control on current dose of Norvasc Plan Patient is scheduled to be discharged today, at that time, medications should be followed according to discharge orders Patient should continue to use home BiPap or CPap once discharged for GÓMEZ -Full code Stable for discharge Attestations 2 Medical Necessity Statement*: As per primary Diagnoses Primary osteoarthritis of knees, bilateral M17.0 COPD (chronic obstructive pulmonary disease) J44.9 Benign essential HTN I10 Time Spent (min) 16
--- NOTE | 2024-03-16 09:41 | PC.CHAP ---
Pastoral Care Encounter/Spiritual Assessment Type of Contact [] Declined fishing reel assembler visit [] Patient/Family/Request visit [] Outpatient visit [] Follow-up visit [] Physician referral [] Code/Alert [] Routine visit [] Staff referral [] Actively dying [] Patient sleeping [] Family support [] [] Out of room [] Palliative care [] [x] Receiving care in room [] Pre-surgical visit [] Trauma [] Long length of stay [] ICU visit [] Other: Relational/Emotional Strength [] Patient feels connected with others/family/visitors/staff [] Distress [] Loneliness/isolation [] Abandonment Spirituality of Patient [] Person of Sonali [] Attends Methodist of their Sonali [] Believes in Prayer [] Reads Bible or Worship materials [] There are Spiritual issues to be addressed Vision Impaired Teacher Interventions [] Prayer [] Active listening [] Non-anxious presence [] Spiritual/emotional support [] Crisis/trauma care [] Spiritual counseling [] Bereavement support [] Provided bereavement packet [] Provided Bible/devotional materials [] Provided toy/stuffed animal, coloring book to patient or family member [] Provided Communion [] Anointing/[place] [] Salvation [] Completed spiritual assessment [] Other: Impact on Illness or Injury [] Angry [] Fearful [] Anxious [] Often cries [] Exhaustion [] Unable to work [] Unable to attend adventist [] Unable to walk/stand [] Unable to read [] Unable to drive [] Unable to eat/drink [] Unable to sleep [] Unable to be with family [] Patient intubated [] Other: Summary Time spent with patient
== END 2024-03-16 12:03 | disposition home or self-care (01) ==
LOC: MEDSURG 09:38
PROVIDERS: Physician Assistant; Admitting Provider Student in an Organized Health Care Education/Training Program; PCP Family Medicine; Visit Provider Student in an Organized Health Care Education/Training Program
PROC: 8E0Y0CZ Robotic Assisted Procedure of Lower Extremity, Open Approach (ICD-10-PCS; CPT 27447; principal; 2024-03-15 07:00)
DX: M17.11 Unilateral primary osteoarthritis, right knee (principal); J44.9 Chronic obstructive pulmonary disease, unspecified; I10 Essential (primary) hypertension; G47.33 Obstructive sleep apnea (adult) (pediatric); F17.200 Nicotine dependence, unspecified, uncomplicated; Z99.81 Dependence on supplemental oxygen; Z91.199 Patient's noncompliance with other medical treatment and regimen due to unspecified reason
CPT/HCPCS: 20985; 27447; 36415; 51702; 73560; 80048; 85025; 86850; 86900; 94640; 97116; 97161; 97165; 97530; C1776; G0378; J0131; J0171; J0330; J0690; J1100; J1170; J1885; J2250; J2405; J2704; J2710; J2795; J3010; J3490; J7030; J7120; J7626

== ENCOUNTER 2024-03-23 06:30 | Outpatient (RCR) | payer MEDICARE, OTHER, SELFPAY | END 2024-04-22 23:59 | disposition home or self-care (01) | LOC: GPT 06:30 | PROVIDERS: Visit Provider Internal Medicine | DX: M17.11 Unilateral primary osteoarthritis, right knee (principal) | CPT/HCPCS: 97110; 97140; 97530 ==

== ENCOUNTER → 2024-03-30 10:22 | Outpatient (BNVA) | payer MEDICARE, OTHER, SELFPAY | PROVIDERS: Visit Provider Physician Assistant | DX: M17.0 Bilateral primary osteoarthritis of knee (principal); Z96.651 Presence of right artificial knee joint | CPT/HCPCS: 73560; 73565; 99024 ==

== ENCOUNTER → 2024-04-27 10:00 | Outpatient (BNVA) | payer MEDICARE, OTHER, SELFPAY | PROVIDERS: Visit Provider Physician Assistant | DX: Z96.651 Presence of right artificial knee joint (principal) | CPT/HCPCS: 73560; 73565; 99024 ==

== ENCOUNTER 2024-06-08 09:40 | Outpatient (CLI) | payer MEDICARE, OTHER, SELFPAY ==
--- NOTE | 2024-06-08 09:43 | USR_ITS ---
PROCEDURE INFORMATION: Exam: US Abdomen; Limited Exam date and time: 06/08/2024 9:52 AM Age: 84 years old Clinical indication: Mass, lump, or swelling; Other: Inguinal; Additional info: Inguinal swelling TECHNIQUE: Imaging protocol: Real time ultrasound of the abdomen with image documentation. Limited exam focused on the region of clinical interest. COMPARISON: CT abdomen pelvis w con* [id number] 07/10/2017 2:49 PM FINDINGS: Urinary bladder: Unremarkable. Bilateral ureteral jets seen. Prevoid volume: 92 mL. Postvoid volume: 10 mL. Other findings: Prostate: 2.9 x 2.3 x 4.2 cm. US/US bladder [id number] IMPRESSION: No acute findings.
== END 2024-06-08 09:41 | disposition home or self-care (01) ==
LOC: RAD 09:41
PROVIDERS: PCP Family Medicine; Visit Provider Family Medicine
DX: R22.2 Localized swelling, mass and lump, trunk (principal)
CPT/HCPCS: 76857

== ENCOUNTER → 2024-06-10 08:35 | Outpatient (BNVA) | payer MEDICARE, OTHER, SELFPAY | PROVIDERS: PCP Family Medicine; Visit Provider Student in an Organized Health Care Education/Training Program | DX: M17.12 Unilateral primary osteoarthritis, left knee; Z96.651 Presence of right artificial knee joint | CPT/HCPCS: 73560; 73565; 99214 ==

== ENCOUNTER 2024-06-15 15:28 | Outpatient (CLI) | payer MEDICARE, OTHER, SELFPAY ==
--- NOTE | 2024-06-15 15:30 | US_ITS ---
WS: [id number] US pelvic limited [id number] HISTORY: INGUINAL SWELLING COMPARISON: None available. Ultrasound is directed to the RIGHT inguinal canal. Area of swelling indicated in the RIGHT inguinal canal. There are a few small benign inguinal lymph nodes. No peristalsing loops of bowel. No solid or cystic mass. US/US pelvic limited [id number] IMPRESSION: Normal RIGHT inguinal canal ultrasound.
== END 2024-06-15 15:29 | disposition home or self-care (01) ==
LOC: RAD 15:28
PROVIDERS: PCP Family Medicine; Visit Provider Family Medicine
DX: R22.2 Localized swelling, mass and lump, trunk (principal)
CPT/HCPCS: 76857

== ENCOUNTER → 2024-06-21 07:47 | Outpatient (BNVA) | payer MEDICARE, OTHER, SELFPAY | PROVIDERS: PCP Family Medicine; Visit Provider Surgery | DX: K40.20 Bilateral inguinal hernia, without obstruction or gangrene, not specified as recurrent (principal); R03.0 Elevated blood-pressure reading, without diagnosis of hypertension | CPT/HCPCS: 99204 ==

== ENCOUNTER 2024-07-05 09:19 | Outpatient (CLI) | payer MEDICARE, OTHER, SELFPAY ==
--- NOTE | 2024-07-05 09:30 | CT_ITS ---
WS: [id number] CT LEFT knee, noncontrast HISTORY: M17.12 - Unilateral primary osteoarthritis, left knee TECHNIQUE: Protocol for [facility] total knee replacement has been obtained. This includes axial imaging th rough the LEFT hip, LEFT knee and LEFT ankle. DLP: 1966.36 mGy.cm COMPARISON: None available. Pelvis: Bilateral SI joint sclerosis. Mild narrowing of the hip joint. No destructive bone lesions. LEFT knee: Tricompartment osteoarthritis. Marginal osteophytes. No fracture. No significant joint eff usion. LEFT ankle: Mild midfoot arthritis. CT/CT knee LT [facility] [id number] IMPRESSION: CT imaging provided for [facility] robotic total knee replacement.
== END 2024-07-05 09:20 | disposition home or self-care (01) ==
LOC: RAD 09:20
PROVIDERS: PCP Family Medicine; Visit Provider Student in an Organized Health Care Education/Training Program
DX: M17.12 Unilateral primary osteoarthritis, left knee (principal); R93.89 Abnormal findings on diagnostic imaging of other specified body structures; M25.762 Osteophyte, left knee
CPT/HCPCS: 73700

== ENCOUNTER → 2024-07-06 15:01 | Outpatient (BNVA) | payer MEDICARE, OTHER, SELFPAY | PROVIDERS: PCP Family Medicine; Visit Provider Physician Assistant | DX: M17.12 Unilateral primary osteoarthritis, left knee (principal); Z96.659 Presence of unspecified artificial knee joint; Z01.818 Encounter for other preprocedural examination | CPT/HCPCS: 36415; 80053; 81001; 85025; 99213 ==

== ENCOUNTER 2024-07-13 10:54 | Day surgery (SDC) | payer MEDICARE, OTHER, SELFPAY ==
[2024-07-13] VITALS (9 sets, daily range): BP systolic 133–181; BP diastolic 68–107; PULSE 68–80; RESP 16–18; TEMP 36.1–36.2; O2SAT 93–96; BMI 31.9
--- NOTE | 2024-07-13 11:04 | W.PM.OPSUD ---
Surgery/Procedure H&P Update DATE OF PROCEDURE: July 13, 2024 DATE H&P PERFORMED: 06/21/24 H&P UPDATE INFORMATION: I have reviewed H&P completed within last 30 days, I have examined patient prior to procedure and No changes to prior documentation PLANNED PROCEDURE: Operation Date: 07/13/24 12:40 Proposed Procedures p Laparoscopic Inguinal Hernia Repair with mesh [id number], K40.20(Bilateral) - Charlie López DO
[2024-07-13] MEDS: sodium chloride 0.9% 1,000 ML 30 ML IV (11:45)
--- NOTE | 2024-07-13 12:23 | ANES.PREANE2 ---
Pre-Anesthetic Assessment Height/Weight: Height 5 ft 8 in Weight 210 lb Temp Pulse Resp BP Pulse Ox O2 Del Method 97.2 F L 80 18 181/107 96 Room Air 07/13/24 11:16 07/13/24 11:16 07/13/24 11:16 07/13/24 11:16 07/13/24 11:16 07/13/24 11:16 Preop Diagnosis: Inguinal hernia Operation Date: 07/13/24 12:40 Proposed Procedures p Laparoscopic Inguinal Hernia Repair with mesh [id number], K40.20(Bilateral) - Charlie López, DO Was Beta Cristi taken within 24 hours: N/A Was Clonidine taken within 24 hours: N/A Last intake: Intake Last Liquid Date 07/12/24 Last Liquid Time 20:30 Last Solid Date 07/12/24 Last Solid Time 20:30 Social Tobacco and No alcohol Exam alert, oriented x 3 and regular rate & rhythm Wheezing on auscultation Airway Submandibular: within normal limits Cervical ROM: within normal limits Mallampati: Class II Dentition: full Anesthetic Plan ASA status: 3 Anesthesia: General Other: No prior issues with anesthesia NPO since yesterday History of hypertension. On amlodipine. 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 Expiratory wheezing on auscultation. Will give DuoNeb preop Patient states he is able to perform ADLs, does admit to SOB with significant exertion Plan for general anesthesia Medications/Allergies Home Medications Medication Instructions Recorded Confirmed Last Taken Type naproxen sodium 220 mg tablet 220 mg PO BID PRN Pain 02/10/20 07/12/24 03/11/24 History (Aleve) amlodipine 5 mg tablet 5 mg PO DAILY 30 days #30 tabs 01/22/21 07/13/24 07/12/24 Rx levalbuterol tartrate 45 2 inh inhalation Q6H 03/09/24 07/13/24 07/12/24 History mcg/actuation aerosol inhaler (Xopenex HFA) Allergies Allergy/AdvReac Type Severity Reaction Status Date / Time No Known Allergies Allergy Verified 07/06/24 15:34 Current Medications Generic Name Dose Route Start Last Admin Trade Name Freq PRN Reason Stop Dose Admin Sodium Chloride 1,000 mls @ 30 mls/hr 07/13/24 11:15 07/13/24 11:45 Sodium Chloride 0.9% IV 07/14/24 11:14 30 mls/hr .Q24H KATHE Administration PFSH Anesthesia Medical History Primary osteoarthritis of knees, bilateral Benign essential HTN Elevated blood pressure reading Atypical chest pain Abnormal EKG SOB (shortness of breath) COPD (chronic obstructive pulmonary disease) Shingles Asthma Neoplasm of lip Surgical History History of carpal tunnel release Family History Son Cancer Denies family history of Diabetes CAD (coronary artery disease) Clotting disorder Dementia Chronic kidney disease (CKD) Suicide Anesthesia complication Bleeding disorder Lung disease Stroke Social History Smoking and tobacco/nicotine status: former use of tobacco/nicotine Alcohol intake: current Alcohol intake frequency: 3 or more drinks per day Substance/Drug Use: never Data Anesthesia Cardiac Studies: Echocardiogram Ultrasound 01/19/20 Sestamibi Stress Test (Cardiology) 01/19/20
[2024-07-13] MEDS: albuterol 2.5 mg/3 mL Neb INHALATION (12:26)
[2024-07-13] MEDS: ceFAZolin 2,000 mg SDV 2000 MG IVP (13:00)
[2024-07-13] MEDS: lidocaine-epi 2% PF 1:200,000 20 mL SDV XX (13:18)
--- NOTE | 2024-07-13 14:40 | P.OP_ITS ---
Operative Report Date of procedure: July 13, 2024 Surgeon: Charlie López DO Procedure: Pre-op diagnosis: Bilateral inguinal hernias Post-op diagnosis: Right pantaloon inguinal hernia, left indirect inguinal hernia Procedure done: Laparoscopic (TEPP) repair of bilateral inguinal hernias with mesh Implants: Left and right extra-large 3D max Bard mesh is Specimens removed/disposition: None Surgeon: Charlie López DO Anesthesia: General and Local Estimated blood loss (mL): 5 Complications: None apparent Brief History: This is a very pleasant 84-year-old gentleman who presented my office with bilateral inguinal hernias. Laparoscopic repair with mesh was indicated. The risks and benefits were explained and documented. Procedure: Patient was wheeled into the operative room and placed on the OR table in a sup ine position. Abdomen was inspected prepped and draped in usual sterile fashion. Time-out was performed and all present were in agreement. A 15 blade scalpel was used to make 1.2 centimeter incision infraumbilically. Combination of sharp and blunt dissection was performed down to the anterior rectus sheath which was opened sharply. The dissecting balloon was then inserted into the space of Retzius and blown up. We put the camera into the port and identified that we were in the correct space. I then placed 2 5 millimeter trocars suprapubically in the midline. I then used endokitners to bluntly dissect in the space of Retzius out laterally. A pantaloon inguinal hernia was identified on the right. Blunt dissection was performed to dissect down the hernia sac until the vas deferens dove medially. An extra-large 3D max Bard right inguinal mesh was then placed into the space of Retzius. The mesh was unrolled and tacked once medially at the pubic bone. The mesh laid out nicely over the spermatic cord. An indirect inguinal hernia was identified on the left. Blunt dissection was performed to dissect down the hernia sac until the vas deferens dove medially. An extra-large 3D max Bard left inguinal mesh was then placed into the space of Retzius. The mesh was unrolled and tacked once medially at the pubic bone. The mesh laid out nicely over the spermatic cord. Hernia sacs were held underneath the meshes as the insufflation was released. Incisions were closed with 4 O Vicryl in a subcuticular interrupted fashion. Skin glue was applied. Patient tolerated the procedure well.
[2024-07-13] MEDS: tranexamic acid 1,000 mg/10mL SDV 1000 MG (15:11)
[2024-07-13] MEDS: HYDROcodone-acetaminophen 7.5-325 mg Tablet 1 TAB PO (15:25)
== END 2024-07-13 16:02 | disposition home or self-care (01) ==
PROVIDERS: PCP Family Medicine; Visit Provider Surgery
PROC: (CPT 49650; principal; 2024-07-13 12:30)
DX: K40.20 Bilateral inguinal hernia, without obstruction or gangrene, not specified as recurrent (principal); I10 Essential (primary) hypertension; J44.9 Chronic obstructive pulmonary disease, unspecified; Z87.891 Personal history of nicotine dependence
CPT/HCPCS: 49650; 51702; C1781; J0690; J1100; J2405; J2704; J3010; J3490; J7030; J7613

== ENCOUNTER → 2024-07-19 10:53 | Outpatient (BNVA) | payer MEDICARE, OTHER, SELFPAY | PROVIDERS: PCP Family Medicine; Visit Provider Surgery | DX: Z98.890 Other specified postprocedural states; Z87.19 Personal history of other diseases of the digestive system | CPT/HCPCS: 99024 ==

== ENCOUNTER 2024-07-26 12:08 | Observation (INO) | payer MEDICARE, OTHER, SELFPAY ==
[2024-07-26] VITALS (16 sets, daily range): BP systolic 100–180; BP diastolic 61–103; PULSE 72–88; RESP 15–23; TEMP 36.1–37; O2SAT 90–99; BMI 31.9
--- NOTE | 2024-07-26 08:00 | W.PM.OPSUD ---
Surgery/Procedure H&P Update DATE OF PROCEDURE: July 26, 2024 DATE H&P PERFORMED: 07/06/24 H&P UPDATE INFORMATION: I have reviewed H&P completed within last 30 days, I have examined patient prior to procedure and No changes to prior documentation PREOP DIAGNOSIS: Left knee DJD PRIMARY INDICATION FOR PROCEDURE: Left knee DJD PLANNED PROCEDURE: Operation Date: 07/26/24 09:40 Proposed Procedures p Kevin Robot Total Knee Arthroplasty(Left) - Shiv Vang DO
[2024-07-26] MEDS: sodium chloride 0.9% 1,000 ML 30 ML IV (08:22)
[2024-07-26] MEDS: ketorolac 30 mg/mL INJ IVP (08:24)
[2024-07-26] MEDS: acetaminophen 1,000 MG/100 ML PIGGYBACK 400 MG IV ×2 (08:28→16:11)
--- NOTE | 2024-07-26 08:37 | PC.NURSE ---
scopalamine patch not given per dr. ayala.
[2024-07-26 08:42] LABS: Basophils % 0.5 %; Eosinophils # 0.2 10^3/uL (0.0-0.8); Eosinophils % 2.2 %; Hematocrit 47.4 % (37-53); Lymphocytes # 2.4 10^3/uL (0.8-4.8); Mean Corpuscular HGB Conc 33.1 g/dL (30-55); Mean Corpuscular Hemoglobin 31.3 pg (27-33); Mean Corpuscular Volume 94.6 fl (82-101); Mean Platelet Volume 10.2 fL (7.4-10.4); Monocytes % 13.7 %; Neutrophils % 51.3 %; Nucleated Red Blood Cells % 0 %; Platelet Count 275 10^3/cmm (157-399); Red Blood Count 5.01 10^6/uL (3.85-5.65); Red Cell Distribution Width 13.7 % (12.1-15.1)
[2024-07-26 09:06] LABS: Blood Urea Nitrogen 15 mg/dL (8-23); Calcium 9.7 mg/dL (8.5-10.5); Carbon Dioxide 31 mmol/L (22-29); Chloride 102 mmol/L (98-107); Creatinine Clr Calc Pharmacy 49.4635; Glucose 102 mg/dL (65-115); Osmolality Calculated 295 mOsm/kg (285-295); Sodium 142 mmol/L (136-145)
--- NOTE | 2024-07-26 09:18 | ANES.PROC ---
Anesthesia Procedures Procedure/Date: 07/26/24 Nerve Block ^: Nerve Block 1: Main Anesthesia: spinal anesthesia block Time Out Performed: Yes Consent: requested by attending/covering physician, from patient, from other, risks and benefits reviewed and patient agrees to proceed Nerve block location: adductor canal (L) Anesthesia monitors applied: pulse oximetry, EKG, BP cuff and oxygen Nerve block position: supine Anesthetic Used: ropivicaine 0.5% (30 ml) and with decadron (4 mg) Ultrasound used to: recognize landmarks and visualize and ID femerol nerve Nerve Stimulator Used?: No Interscalene/Femoral BLK: 4 stimuplex 21 g needle used for position and inplane approach, visualize local anesthetic spread and no vascular puncture identified Injection: neg aspiration of heme Patient Tolerated Procedure: well Complications: none
--- NOTE | 2024-07-26 09:24 | ANES.PREANE2 ---
Pre-Anesthetic Assessment Height/Weight: Height 1.73 m Weight 95.254 kg Temp Pulse Resp BP Pulse Ox O2 Del Method 97.6 F 88 18 153/103 93 Room Air 07/26/24 07:59 07/26/24 07:59 07/26/24 07:59 07/26/24 07:59 07/26/24 07:59 07/26/24 08:06 Preop Diagnosis: Left knee DJD Operation Date: 07/26/24 09:40 Proposed Procedures p Kevin Robot Total Knee Arthroplasty(Left) - Shiv Vang DO Familial anesthetic complications: None Was Beta Cristi taken within 24 hours: N/A Was Clonidine taken within 24 hours: N/A Last intake: Intake Last Liquid Date 07/25/24 Last Liquid Time 20:00 Last Solid Date 07/25/24 Last Solid Time 17:00 Social No alcohol and No tobacco Airway Mallampati: Class II Dentition: false Pulmonary Chronic Obstructive Pulmonary Disease CV/HEM Hypertension LBB Metabolic Morbid Obesity Anesthetic Plan ASA status: 3 Anesthesia: Regional (specify below) Risk of > 500 ml blood loss (7ml/kg in children): No Medications/Allergies Home Medications Medication Instructions Recorded Confirmed Last Taken Type naproxen sodium 220 mg tablet 220 mg PO BID PRN Pain 02/10/20 07/22/24 03/11/24 History (Aleve) amlodipine 5 mg tablet 5 mg PO DAILY 30 days #30 tabs 01/22/21 07/22/24 07/25/24 Rx levalbuterol tartrate 45 2 inh inhalation Q6H 03/09/24 07/22/24 07/24/24 History mcg/actuation aerosol inhaler (Xopenex HFA) docusate sodium 100 mg capsule 100 mg PO BID #14 caps 07/13/24 07/22/24 Unknown Rx (Colace) hydrocodone 7.5 mg-acetaminophen 1 tab PO Q6H PRN pain #20 tabs 07/13/24 07/22/24 07/24/24 Rx 325 mg tablet Allergies Allergy/AdvReac Type Severity Reaction Status Date / Time No Known Allergies Allergy Verified 07/22/24 09:27 Current Medications Generic Name Dose Route Start Last Admin Trade Name Freq PRN Reason Stop Dose Admin Sodium Chloride 1,000 mls @ 30 mls/hr 07/26/24 07:45 07/26/24 08:22 Sodium Chloride 0.9% IV 07/27/24 07:44 30 mls/hr .Q24H KATHE Administration PFSH Anesthesia Medical History Primary osteoarthritis of knees, bilateral Benign essential HTN Elevated blood pressure reading Atypical chest pain Abnormal EKG SOB (shortness of breath) COPD (chronic obstructive pulmonary disease) Shingles Asthma Neoplasm of lip Surgical History Hx of hernia repair Laparoscopic (TEPP) repair of bilateral inguinal hernias with mesh- Dr López 07/13/24 History of carpal tunnel release Family History Son Cancer Denies family history of Diabetes CAD (coronary artery disease) Clotting disorder Dementia Chronic kidney disease (CKD) Suicide Anesthesia complication Bleeding disorder Lung disease Stroke Social History Smoking and tobacco/nicotine status: former use of tobacco/nicotine Alcohol intake: current Alcohol intake frequency: 3 or more drinks per day Substance/Drug Use: never Data Anesthesia 07/26/24 08:15 07/26/24 08:15 Short CBC 07/26/24 Range/Units 08:15 WBC 7.60 (3.29-11.43) 10^3/uL Hgb 15.70 (11.27-16.99) g/dL Hct 47.4 (37-53) % MCV 94.6 (82-101) fl Plt Count 275 (157-399) 10^3/cmm Neut % (Auto) 51.3 % Neut # (Auto) 3.90 (1.8-7.7) 10^3/uL BMP 07/26/24 08:15 Sodium 142 Potassium 4.0 Chloride 102 Carbon Dioxide 31 H BUN 15 Creatinine 1.2 Glucose 102 Calcium 9.7 Blood Bank 07/26/24 08:15 Blood Type O Negative Rho(D) Type Rh negative Antibody Screen Negative Cardiac Studies: Echocardiogram Ultrasound 01/19/20 Sestamibi Stress Test (Cardiology) 01/19/20
--- NOTE | 2024-07-26 09:48 | XRR_ITS ---
PROCEDURE INFORMATION: Exam: XR Left Knee Exam date and time: 07/26/2024 12:11 PM Age: 84 years old Clinical indication: Device placement; Joint replacement hardware; Prior surgery; Surgery date: Post-operative (0-2 days); Surgery type: L tka; Additional info: Post L tka, do in pacu TECHNIQUE: Imaging protocol: Radiologic exam of the left knee. Views: 1 or 2 views. COMPARISON: CT knee LT [facility] [id number] 07/05/2024 9:31 AM FINDINGS: Bones/joints: Patient has since undergone placement of left total knee prosthesis that appears in satisfactory position. Bone metal interface is unremarkable. There is no periprosthetic fracture. Remaining visualized osseous structures are unremarkable. Soft tissues: There is generalized soft tissue swelling with air in the soft tissues and overlying surgical latha along the skin surface consistent with recent surgery. There is electronic device projecting over the soft tissues left mid thigh region extraneous to the patient. XR/XR knee LT 1-2V [id number] IMPRESSION: Recent left total knee replacement in satisfactory position.
[2024-07-26] MEDS: ceFAZolin 2,000 MG in sodium chloride 0.9% (plus) 50 ML 100 MG IV ×2 (09:50→17:43)
[2024-07-26] MEDS: tranexamic acid 1,000 mg/10mL SDV 1000 MG IV (09:50)
[2024-07-26] MEDS: tranexamic acid 1,000 mg/10mL SDV 1000 MG XX (10:40)
[2024-07-26] MEDS: ROPivacaine 0.5% SDV 30 mL 100 MG INJECTION (10:40)
[2024-07-26] MEDS: ketorolac 30 mg/mL INJ XX (10:40)
[2024-07-26] MEDS: EPINEPHrine 1 mg/mL INJ XX (10:40)
[2024-07-26] MEDS: VANCOMYCIN ADD-Vantage 1,000 MG VIAL 1000 MG XX (11:59)
--- NOTE | 2024-07-26 11:59 | PM.OP ---
Operative Report Date of procedure: July 26, 2024 Surgeon: Shiv Vang DO Lathmaker: Jacinto Vang PA-C: PA was necessary for assistance in this case with leg positioning retraction and protection of neurovascular structures as well as assistance in implantation wound closure and dressing application. Procedure: Preoperative diagnosis: Left knee degenerative joint disease Post-op diagnosis: Same Procedure done: Left total knee arthroplasty, cemented?robotic assisted Kevin Implants: [place] triathlon size 6 femur CR cemented?left [place] triathlon size? 5 tibia universal baseplate cemented [place] triathlon asymmetric patella size 29 mm Mervin triathlon polyethylene 9mm Surgeon: Shiv Vang DO Estimated blood?loss: 20 mL Tourniquet 67minutes IV fluids: 1200 mL Urine output: 350 mL Complications: None Condition: stable Disposition: floor Brief History: Patient is a 84-year-old male with with chronic?left knee degenerative joint disease.? Patient has been worked up in the outpatient setting in the orthopedic office at this point time through shared decision making given? [id number] arthritis as well as failed conservative treatment, and pt would?like to proceed with a?left total knee arthroplasty.? Through shared decision making elected to proceed with surgical intervention for?left total knee arthroplasty.? We talked about continued conservative treatment and surgical intervention as far as the risk benefits complications alternatives surgical and nonsurgical treatment options.? At this point time understanding patient risks with surgery he agrees to proceed with surgical intervention.? Once again? risk with surgery include but are not?limited to make it better make it worse blood clot, heart attack, stroke, on the table, infection, injury to nerves or vessels, persistent pain, arthrofibrosis, implant failure.? Understanding these risks patient agrees to proceed with surgical intervention consent was obtained in preop holding area.? All questions answered. Procedure: Patient was seen and evaluated in the preoperative holding area.? Consent was reviewed and signed with patient with plan for?left total knee arthroplasty.? All questions answered.? Correct extremity marked.? Patient seen and evaluated by the anesthesia department and once cleared for surgery was taken back to the operative suite.? Patient was placed into a supine position on the OR table.? All bony prominences were well-padded.? Patient was appropriately secured to the bed.? Patient underwent anesthesia per the anesthesia department.? Patient received spinal anesthesia and? Boateng catheter was placed.? A nonsterile tourniquet was applied to the?left thigh.? At this point in time a final timeout performed.? Patient received appropriate preoperative antibiotics and TXA. Next the?left?lower extremity was then prepped and draped in standard orthopedic fashion. Esmarch tourniquet was used exsanguinate the?left?lower extremity.? Tourniquet was insufflated to 250 mmHg. A standard anterior incision was made over midline of the knee.? Sharp scalpel excision through skin and subcutaneous tissue full-thickness skin flaps were made.? Fascia was elevated off of the extensor retinaculum was stable with medial parapatellar arthrotomy was then made.? The performed standard sequential releases..? Immediately on entry into the joint patient was found to have severe eburnated bone and tricompartmental arthritic changes noted.? With significant osteophyte formation.? Next the the patella was then stuffed and the knee was then flexed.?? Nate was placed superiorly around the anterior aspect of the femur this was freed of synovium and I subsequently then placed by 2 femur pins to establish my femur arrays for the Kevin robot.? These were then placed bicortically and? femur array was then appropriately secured with appropriate visualization.? Next attention was turned towards the tibial rays.? These were then drilled sequentially bicortically in parallel fashion and intraincisional.? I then placed my guide as well as my tibial array on in place.? This was appropriately secured and had excellent visualization with the Kevin robot.? Next the tibial checkpoint as well as femur checkpoint were then placed.? At this point time I then subsequently established my head center as well as my medial?lateral malleoli as well as my checkpoints.? Next utilizing standard Kevin technology I then mapped out the appropriate points and confirmation points around the femur as well as the tibia in standard fashion.? Once this was then done I then removed all osteophytes in preparation for dynamic testing.? All osteophytes were removed as well as I removed the ACL and the PCL was excised due to its significant tearing and degeneration noted.? At this point time the knee was brought into full extension and we performed our standard evaluation of our gap balancing stressing his?ligaments and extension as well as flexion appropriate adjustments were made to have appropriate gap balancing in both flexion and extension.? This plan for final cuts.? We get a preoperative plan evaluating our implants which was a size 6 femur and a size 5 tibia.? Next we brought in the Kevin robot and sequentially made our femur cuts.? All excess bony cuts were then removed.? Finally we made our tibial cut.? Once this was done a standard PCL retractor was then placed into this position I excised the medial and?lateral meniscus.? The tibial cut was then subsequently removed all excess bony debris was removed.? I then utilized a?lamina data recovery planner and remove the posterior osteophytes.? At this point time sized the tibia and confirmed this was a size 5.? I utilized our blunt probe to establish rotation of tibial implant.? Once this was done I then placed my tibia size 5 trial in appropriate position and then subsequently placed tibial pins to hold this into place placed and trailed to a size 9 mm poly as well as a size 6 femur which was appropriately impacted in place knee was then subsequently brought into extension. Trials were then assessed,? this was stable with varus valgus stress in extension as well as had symmetrical translation when brought into flexion demonstrating symmetrical gaps. I had excellent balance gaps in flexion and extension with varus and valgus stresses.? At this point I was satisfied with these implants these were then verified and opened on the back table size 5 tibia, size 6 femur,? size 9 mm polythickness.? We did confirm appropriate gap balancing and stresses as well as alignment utilizing? Kevin and were satisfied with this plan.? ?At this point time with my trials in place I then towel clip the patella everted this made appropriate measurements subsequently utilizing freehand technique performed by patellar resurfacing this was confirmed to be appropriate resection and subsequently sized to be a 29 mm asymmetric.? My drill peg guides were then clamped and appropriate position and appropriate position in the patella for appropriate tracking and parallel with the joint.? Pegs were drilled trial implant was placed and the knee was then subsequently ranged and found to have excellent patellar tracking.? Femur pegs were then drilled.?All checkpoints as well as guidepins and arrays were removed and appropriate counts made.? Satisfied with our tibial placement rotation I then utilized the keel punch and prepped the tibia.? At this point time all of our trial implants were removed.? The wound bed? was thoroughly irrigated and dried and prepped for cementation.? Cement was mixed on the back table.? Once cement was ready this was then covered onto the tibia and the tibial baseplate was then impacted and all excess cement was removed.? Next the polyethylene was then impacted into place on the tibial baseplate.? Next cement was placed onto the femur as well as under the femur implants and impacted in to place and all excess cement was extruded and removed.? Knee was taken into full extension? to clear all excess cement was removed.? Warm saline was placed over the joint.? I then towel clip patella and dried for cementation. cemented the patella into place.? This was all clamped and the cement was allowed to cure.? Thorough irrigation performed with pulse?lavage.? I then placed my periarticular injection while the cement was curing.? Once cured the knee was taken through range of motion and had excellent stability and gaps were balanced in flexion and extension.? Tourniquet was then deflated. hemostasis satisfactory with electrocautery.?Vancomycin powder was placed in wound bed for antibiotic infection prophylaxis. Next I then subsequently closed the capsule with Ethibond suture as well as a running strata fix suture.? Knee was then taken through range of motion 30 times.? Next the skin was then closed in?layered fashion of running stratifix sutures of deep and subcutenous tissue and skin.? ?closed in flexion and Prineo glue was then placed over the incision this allowed to cure.? Incision was covered with Richard incisional VAC dressing, with ABDs soft roll and Mina wrap.? Patient was then awakened from anesthesia and taken to PACU in stable condition. Disposition: Patient taken to PACU in stable condition will be admitted to the floor for pain control PT/OT weight-bear as tolerated?left?lower extremity dressing changes as needed, DVT prophylaxis. Pain control. Patient will receive appropriate postoperative antibiotics. patient will be seen today by the internal medicine team for medical management.? Patient will follow up with the office in 2 weeks.? Patient understands agrees with current plan.? All questions answered.
--- NOTE | 2024-07-26 12:24 | P.BOP_ITS ---
Date of Procedure: [July 26, 2024] Surgeon: [Dr. Vang DO] Area Supervisor(s): [Jacinto Vang PA-C] Procedure(s) performed: [Left total knee arthroplasty with Kevin robotic assist] Findings of the procedure(s): [Left knee degenerative joint disease. Procedure went well as planned.] Estimated blood loss: [20 ml] Specimen(s) removed: [N/A] Post-operative diagnosis: [Left knee degenerative joint disease]
--- NOTE | 2024-07-26 12:26 | PM.PACU ---
PACU note Narrative: Patient is an 84-year-old male who just underwent left total knee arthroplasty. Pt transferred to PACU in stable condition. Dressing is dry. pt is awake and alert. pt can wiggle toes. Distal pulses are palpable toes are warm and well-perfused. Cap refill is normal and under 2 seconds. Unable to do any further assessment of motor sensation due to residual spinal block. Pain is controlled. Exam: awake Disposition: admitted
--- NOTE | 2024-07-26 12:30 | ANE.PACU2 ---
Inpatient post-anesthesia follow up: Airway intact: Yes Vital signs: Temperature 97.0 F Pulse Rate 75 Respiratory Rate 16 Blood Pressure 121/62 Pulse Oximetry 92 Oxygen Delivery Me thod Room Air Oxygen Flow Rate 8 Fraction of Inspir ed Oxygen Hydration adequate: Yes Nausea and vomiting: No Pain level: 1 Mental status: Baseline
[2024-07-26] MEDS: lactated ringers 1,000 ML 75 ML IV (13:12)
[2024-07-26] MEDS: chlorhexidine gluconate 0.12% Btl 473 mL 30 ML MUCOUS MEM ×2 (13:12→20:29)
[2024-07-26] MEDS: tranexamic acid 1,000 MG/100 ML PREMIX 600 MG IV (16:11)
[2024-07-26] MEDS: oxyCODONE 5 mg IR Tab/Cap PO (16:18)
--- NOTE | 2024-07-26 16:21 | PM.CONSULT ---
Providers/Reason For Consult Consulting Physician/Specialty*: Orthopedic Reason for Consult*: Hypertension, COPD Attending Physician: Shiv Vang DO Primary Care Provider: Simon Mane MD History of Present Illness History of Present Illness Nasir Orourke is a 84 year old male with a past medical history of hypertension, COPD, recent history of inguinal hernia repair who [place] [facility] [place] left knee total arthroplasty, currently he is sitting up beside the bed denies any chest pain, no shortness of breath, no abdominal pain, denies a history of CAD, no history of strokes, no history of diabetes, does have hypertension, no chest pain, palpitations, he recently had inguinal hernia repair surgery, denies any constipation denies any blood black stools, no abdominal pain Review of Systems Card: Denies: chest pain Resp: Denies: dyspnea GI: Denies: abdominal pain Medications/Allergies Home Medications Medication Instructions Recorded Confirmed Last Taken Type naproxen sodium 220 mg tablet 220 mg PO BID PRN Pain 02/10/20 07/22/24 03/11/24 History (Aleve) amlodipine 5 mg tablet 5 mg PO DAILY 30 days #30 tabs 01/22/21 07/22/24 07/25/24 Rx levalbuterol tartrate 45 2 inh inhalation Q6H 03/09/24 07/22/24 07/24/24 History mcg/actuation aerosol inhaler (Xopenex HFA) docusate sodium 100 mg capsule 100 mg PO BID #14 caps 07/13/24 07/22/24 Unknown Rx (Colace) hydrocodone 7.5 mg-acetaminophen 1 tab PO Q6H PRN pain #20 tabs 07/13/24 07/22/24 07/24/24 Rx 325 mg tablet Allergies Allergy/AdvReac Type Severity Reaction Status Date / Time No Known Allergies Allergy Verified 07/22/24 09:27 Current Medications Generic Name Dose Route Start Last Admin Trade Name Freq PRN Reason Stop Dose Admin Chlorhexidine Gluconate 30 ml 07/26/24 13:00 07/26/24 13:12 Chlorhexidine Gluconate 0.12% Btl 473 Ml MUCOUS MEM 30 ml QID KATHE Administration Acetaminophen 1,000 mg in 100 mls @ 400 mls/hr 07/26/24 16:30 07/26/24 16:11 Acetaminophen IV 07/27/24 08:44 400 mls/hr Q8H KATHE Administration Lactated Ringer's 1,000 mls @ 75 mls/hr 07/26/24 12:41 07/26/24 13:12 Lactated Ringers IV 75 mls/hr .[id number] KATHE Administration Oxycodone HCl 5 mg 07/26/24 12:41 07/26/24 16:18 Oxycodone 5 Mg Ir Tab/Cap PO 5 mg Q4H PRN Administration MODERATE PAIN PFSH Acute PFSH: Medical History Primary osteoarthritis of knees, bilateral Benign essential HTN Elevated blood pressure reading Atypical chest pain Abnormal EKG SOB (shortness of breath) COPD (chronic obstructive pulmonary disease) Shingles Asthma Neoplasm of lip Surgical History Hx of hernia repair Laparoscopic (TEPP) repair of bilateral inguinal hernias with mesh- Dr López 07/13/24 History of carpal tunnel release Family History Son Cancer Denies family history of Diabetes CAD (coronary artery disease) Clotting disorder Dementia Chronic kidney disease (CKD) Suicide Anesthesia complication Bleeding disorder Lung disease Stroke Social History Smoking and tobacco/nicotine status: former use of tobacco/nicotine Alcohol intake: current Alcohol intake frequency: 3 or more drinks per day Substance/Drug Use: never Vitals/I&O/Wt Last Vital Signs Temp 97.0 F L 07/26/24 12:30 Pulse 75 07/26/24 13:40 Resp 16 07/26/24 16:18 BP 121/62 07/26/24 12:30 Pulse Ox 92 07/26/24 13:40 O2 Del Method Room Air 07/26/24 13:40 O2 Flow Rate 8 07/26/24 12:06 07/26/24 07/26/24 07/26/24 06:59 14:59 22:59 Intake Total 784 / 784 Output Total 370 / 370 Balance 414 / 414 Weight last 48 hrs Weight 102.058 kg Weight 95.254 kg Physical Exam Const: COMMON NORMALS: no acute distress and patient oriented x3 HENMT: COMMON NORMALS: normocephalic HEAD & SCALP: normocephalic Eye: COMMON NORMALS: Equal, round and reactive pupils present PUPIL: Yes Equal, round and reactive pupils present Neck/C-Spine: COMMON NORMALS: no JVD Resp: COMMON NORMALS: normal respiratory effort, No retractions, No use of accessory muscles and clear to auscultation bilaterally AUSCULTATION: clear to auscultation bilaterally Cardio: COMMON NORMALS: no JVD, regular rate, regular rhythm, S1 normal heart sound present and S2 normal heart sound present RATE: regular rate RHYTHM: regular rhythm HEART SOUNDS: S1 normal heart sound present and S2 normal heart sound present GI: COMMON NORMALS: Normal to inspection, nondistended, normoactive bowel sounds present and non-tender Extremity: COMMON NORMALS: no calf tenderness and no pedal edema Neuro: COMMON NORMALS: patient oriented x3, CN's II-XII intact bilaterally and moves all extremities Psych: COMMON NORMALS: mental status grossly normal Urinary Catheter Management: Boateng: Cath Placed During This Visit: yes Urinary Catheter Date of Insertion: 07/26/24 Urinary Catheter Time of Insertion: 10:04 Data 07/26/24 08:15 07/26/24 08:15 A&P Assessment and plan (1) Benign essential HTN: (2) COPD (chronic obstructive pulmonary disease): (3) Left knee DJD: Plan Status post left knee arthroplasty -Eliquis for DVT prophylaxis -Pain control and anticoagulation as per orthopedic team Hypertension, resume home Norvasc History of COPD no complaints of shortness of breath Recent history of inguinal hernia repair, no abdominal pain complaints, monitor Consult Attestations Medical Necessity Statement: Patient requires hospitalization for left knee arthroplasty Diagnoses Benign essential HTN I10 COPD (chronic obstructive pulmonary disease) J44.9 Left knee DJD M17.12
[2024-07-26] MEDS: mupirocin oint 22 gm 1 APPLIC NASAL (17:43)
[2024-07-26] MEDS: docusate sodium 100 mg Capsule PO (17:44)
[2024-07-26] MEDS: iron polysaccharide complex 150 mg Capsule PO (17:44)
[2024-07-26] MEDS: calcium carb-vit d 600mg/400unit 1 Tablet 1 EACH PO (17:44)
[2024-07-27] VITALS: BP 142/73; PULSE 71; RESP 16; TEMP 37; O2SAT 93
[2024-07-27] MEDS: acetaminophen 1,000 MG/100 ML PIGGYBACK 400 MG IV ×2 (00:41→09:37)
[2024-07-27] MEDS: lactated ringers 1,000 ML 75 ML IV (02:00)
[2024-07-27] MEDS: ceFAZolin 2,000 MG in sodium chloride 0.9% (plus) 50 ML 100 MG IV ×2 (02:00→10:27)
[2024-07-27 04:00] VITALS: BP 132/74; PULSE 68; RESP 17; TEMP 37.1; O2SAT 93
[2024-07-27 05:39] LABS: Basophils % 0.1 %; Hematocrit 40.6 % (37-53); Lymphocytes # 1.4 10^3/uL (0.8-4.8); Lymphocytes % 8.3 %; Mean Corpuscular Hemoglobin 31.7 pg (27-33); Mean Corpuscular Volume 93.3 fl (82-101); Mean Platelet Volume 10.7 fL (7.4-10.4); Monocytes # 1.3 10^3/uL (0.2-0.9); Monocytes % 7.8 %; Neutrophils # 13.81 10^3/uL (1.8-7.7); Neutrophils % 83.3 %; Nucleated Red Blood Cells % 0 %; Platelet Count 251 10^3/cmm (157-399); Red Blood Count 4.35 10^6/uL (3.85-5.65); Red Cell Distribution Width 13.7 % (12.1-15.1); White Blood Count 16.59 10^3/uL (3.29-11.43)
[2024-07-27 06:26] LABS: Anion Gap 14.1 (5-19); Blood Urea Nitrogen 16 mg/dL (8-23); Calcium 8.9 mg/dL (8.5-10.5); Carbon Dioxide 26 mmol/L (22-29); Chloride 103 mmol/L (98-107); Creatinine Clr Calc Pharmacy 51.1645; Glucose 116 mg/dL (65-115); Osmolality Calculated 290 mOsm/kg (285-295); Potassium 4.1 mmol/L (3.5-5.1); Sodium 139 mmol/L (136-145)
[2024-07-27 07:37] VITALS: BP 173/79; PULSE 69; RESP 18; TEMP 36.5; O2SAT 91
[2024-07-27 08:30] VITALS: RESP 16
[2024-07-27] MEDS: oxyCODONE 5 mg IR Tab/Cap PO (08:30)
[2024-07-27] MEDS: docusate sodium 100 mg Capsule PO (08:31)
[2024-07-27] MEDS: apixaban 5 mg Tablet 2.5 MG PO (08:31)
[2024-07-27] MEDS: multivitamin therapeutic Tablet 1 TAB PO (08:32)
[2024-07-27] MEDS: iron polysaccharide complex 150 mg Capsule PO (08:32)
[2024-07-27] MEDS: amlodipine 5 mg Tablet PO (08:32)
[2024-07-27] MEDS: calcium carb-vit d 600mg/400unit 1 Tablet 1 EACH PO (08:32)
[2024-07-27] MEDS: chlorhexidine gluconate 0.12% Btl 473 mL 30 ML MUCOUS MEM (08:34)
--- NOTE | 2024-07-27 08:43 | XRR_ITS ---
PROCEDURE INFORMATION: Exam: XR Chest Exam date and time: 07/27/2024 9:23 AM Age: 84 years old Clinical indication: Shortness of breath; Additional info: SOB TECHNIQUE: Imaging protocol: Radiologic exam of the chest. Views: 1 view. COMPARISON: CR XR chest 2V* [id number] 07/21/2023 3:23 PM FINDINGS: Lungs: Unremarkable. No consolidation. Pleural spaces: Unremarkable. No pleural effusion. No pneumothorax. Heart/Mediastinum: Unremarkable. No cardiomegaly. Bones/joints: Unremarkable. XR/XR chest 1V portable [id number] IMPRESSION: No acute findings.
[2024-07-27 09:10] LABS: Alanine Aminotransferase 11 U/L (0-41); Albumin Level 3.3 g/dL (3.5-5.2); Alkaline Phosphatase 87 U/L (40-130); Aspartate Amino Transferase 21 U/L (0-40); Globulin 2.5 g/dL (1.3-4.6); Total Bilirubin 0.5 mg/dL (0.15-1.2); Total Protein 5.8 g/dL (6.6-8.7)
--- NOTE | 2024-07-27 10:11 | PC.CHAP ---
Pastoral Care Encounter/Spiritual Assessment Type of Contact [] Declined rater associate visit [] Patient/Family/Request visit [] Outpatient visit [] Follow-up visit [] Physician referral [] Code/Alert [x] Routine visit [] Staff referral [] Actively dying [] Patient sleeping [] Family support [] [] Out of room [] Palliative care [] [] Receiving care in room [] Pre-surgical visit [] Trauma [] Long length of stay [] ICU visit [] Other: Relational/Emotional Strength [x] Patient feels connected with others/family/visitors/staff [] Distress [] Loneliness/isolation [] Abandonment Spirituality of Patient [x] Person of Sonali [] Attends Holiness of their Sonali [x] Believes in Prayer [] Reads Bible or Presybeterian materials [] There are Spiritual issues to be addressed Physical Science Teacher Interventions [x] Prayer [x] Active listening [] Non-anxious presence [x] Spiritual/emotional support [] Crisis/trauma care [] Spiritual counseling [] Bereavement support [] Provided bereavement packet [] Provided Bible/devotional materials [] Provided toy/stuffed animal, coloring book to patient or family member [] Provided Communion [] Anointing/[place] [] Salvation [x] Completed spiritual assessment [] Other: Impact on Illness or Injury [] Angry [] Fearful [] Anxious [] Often cries [] Exhaustion [] Unable to work [] Unable to attend buddhism [] Unable to walk/stand [] Unable to read [] Unable to drive [] Unable to eat/drink [] Unable to sleep [] Unable to be with family [] Patient intubated [] Other: Summary Time spent with patient 5 min
--- NOTE | 2024-07-27 10:49 | P.PN_ITS ---
Subjective 2 Subjective: Patient was seen this morning, denies any fevers, no chills, no abdominal pain, no dysuria, no new rashes, does have a slight cough, but no shortness of breath, is on room air Vitals/I&O/Wt Last Vital Signs Temp 97.7 F 07/27/24 07:37 Pulse 69 07/27/24 07:37 Resp 16 07/27/24 08:30 BP 173/79 07/27/24 07:37 Pulse Ox 91 07/27/24 07:37 O2 Del Method Room Air 07/27/24 07:37 O2 Flow Rate 8 07/26/24 12:06 07/26/24 07/27/24 07/27/24 22:59 06:59 14:59 Intake Total 1410 / 2194 1350 / 3544 220 / 220 Output Total 600 / 970 400 / 1370 Balance 810 / 1224 950 / 2174 220 / 220 Weight last 48 hrs Weight 102.194 kg Weight 102.058 kg Weight 95.254 kg Physical Exam 2 Const: COMMON NORMALS: no acute distress and patient oriented x3 Resp: COMMON NORMALS: normal respiratory effort, No retractions, No use of accessory muscles and clear to auscultation bilaterally AUSCULTATION: clear to auscultation bilaterally Cardio: COMMON NORMALS: regular rate, regular rhythm, S1 normal heart sound present and S2 normal heart sound present RATE: regular rate RHYTHM: r egular rhythm HEART SOUNDS: S1 normal heart sound present and S2 normal heart sound present GI: COMMON NORMALS: Normal to inspection, nondistended, normoactive bowel sounds present and non-tender Extremity: COMMON NORMALS: no pedal edema Neuro: COMMON NORMALS: patient oriented x3 Psych: COMMON NORMALS: mental status grossly normal Urinary Catheter Management: Boateng: Cath Placed During This Visit: yes, but has since been removed by the nurse Reason for Continuing Indwelling Catheter: Decision to DC Catheter Urinary Catheter Date of Insertion: 07/26/24 Urinary Catheter Time of Insertion: 10:04 Date Urinary Catheter Removed: 07/27/24 Time Urinary Catheter Discontinued: 06:56 Data 07/27/24 04:49 07/27/24 04:49 A&P Assessment and plan (1) Benign essential HTN: (2) COPD (chronic obstructive pulmonary disease): (3) Left knee DJD: Plan Status post left knee arthroplasty -Eliquis for DVT prophylaxis -Pain control and anticoagulation as per orthopedic team Hypertension, resume home Norvasc History of COPD no complaints of shortness of breath Recent history of inguinal hernia repair, no abdominal pain complaints, monitor On discharge can resume Norvasc, would hold naproxen as he is on Eliquis, patient does have leukocytosis this morning, chest x-ray no acute findings, will await UA patient will be discharged today, patient was advised if he has any fevers, chills, cough, please come back to the hospital PDMP PDMP Reviewed: Not Reviewed Attestations 2 Medical Necessity Statement*: Patient will be discharged today Diagnoses Benign essential HTN I10 COPD (chronic obstructive pulmonary disease) J44.9 Left knee DJD M17.12
[2024-07-27 10:52] LABS: Bilirubin Urine Negative (Negative); Blood Urine 2+ (Negative); Glucose Urine UA Negative (Normal); Ketones Urine Trace (Negative); Leukocyte Esterase Urine 1+ (Negative); Nitrate Urine Negative (Negative); Protein Urine 1+ (Negative); Urine Appearance Cloudy (CLEAR); Urine Color Yellow (Yellow)
[2024-07-27 10:58] LABS: Add Urine Microscopic? YES; Bacteria Urine None Seen /hpf; Hyaline Casts Urine 4.11 /lpf; RBC Urine 21-50 /hpf (0-2); Squamous Epithelial Cell Urine 0-5 /hpf (0-5); WBC Urine 51-100 /hpf (0-5)
[2024-07-27 11:07] LABS: Specific Gravity, Urine 1.043 (1.005-1.030)
[2024-07-27 11:09] LABS: Add Urine Culture? Yes
[2024-07-27 11:44] VITALS: BP 144/94; PULSE 85; RESP 17; TEMP 36.7; O2SAT 93
--- NOTE | 2024-07-27 13:35 | PM.DCS ---
Discharge Providers Date of Admission: 07/26/24 12:08 Date of Discharge: July 27, 2024 Attending Provider at Admission: Shiv Vang DO Attending Provider at Discharge: Shiv Vang DO Consults: Hospitalist?Dr. Weaver Primary Care Provider: Simon Mane MD Diagnoses at Discharge Discharge Diagnosis (1) Benign essential HTN: Status: Acute (2) COPD (chronic obstructive pulmonary disease): Status: Acute (3) Left knee DJD: Status: Resolved Reason for Visit Reason for Visit: M17.12 Brief History: Status post left total knee arthroplasty?Kevin robotic assisted Hospital Course Hospital Course Patient presented to the preoperative holding area with plan for left total knee arthroplasty after patient has been worked up in the outpatient setting for failed conservative treatment of left knee degenerative joint disease. Once cleared by anesthesia for surgery patient subsequently was taken back to the operative suite underwent anesthesia per anesthesia department and then subsequently underwent a left total knee arthroplasty. Procedure was performed without any complications patient was taken to PACU in stable condition patient recovered well in PACU and then was admitted to the floor postoperatively internal medicine was consulted and on board for medical management and assistance with care. Patient received appropriate PT/OT, postoperative antibiotics, pain control, postoperative DVT prophylaxis. Elevation and ice. Patient encouraged for knee range of motion allowed weightbearing as tolerated to the operative lower extremity. Dressing was changed as needed, labs were monitored daily. Patient recovered well postoperatively and worked well and progressed well with therapy. It was determined on postoperative day 1 the patient was stable for discharge from an orthopedic standpoint and medicine. Patient was comfortable with discharge and plan was discharged home. Patient received appropriate discharge instructions as well as pain medication and DVT prophylaxis postoperatively. Given appropriate instructions for dressing management. Patient will follow-up with Dr. Vang/orthopedics in the office in 2 weeks. All questions answered. Understand if there is any issues questions or concerns and contact the office. Physical Exam Narrative: Left knee examination: Dressing on in place, clean dry and intact. No evidence of saturation. Patient has normal postoperative swelling and tenderness to palpation to the knee. Compartments are soft compressible,'s calf soft and nontender. Sensations intact to light touch distally. Distal pulses are palpable. Patient is able to wiggle toes as well as plantarflex and dorsiflex ankle. Urinary Catheter Management: Boateng: Cath Placed During This Visit: yes, but has since been removed by the nurse Reason for Continuing Indwelling Catheter: Decision to DC Catheter Urinary Catheter Date of Insertion: 07/26/24 Urinary Catheter Time of Insertion: 10:04 Date Urinary Catheter Removed: 07/27/24 Time Urinary Catheter Discontinued: 06:56 Discharge Data Studies Completed and Pending Completed Studies During Hospitalization Category Date Time Status XR chest 1V portable [id number] Routine Exams 07/27/24 08:43 Completed XR knee LT 1-2V [id number] Routine Exams 07/26/24 09:48 Completed Radiology Impressions Knee X-Ray 07/26/24 09:48 IMPRESSION: Recent left total knee replacement in satisfactory position. Chest X-Ray 07/27/24 08:43 IMPRESSION: No acute findings. Laboratory Results WBC 16.59 10^3/uL (3.29-11.43) H 07/27/24 04:49 RBC 4.35 10^6/uL (3.85-5.65) 07/27/24 04:49 Hgb 13.80 g/dL (11.27-16.99) 07/27/24 04:49 Hct 40.6 % (37-53) 07/27/24 04:49 MCV 93.3 fl (82-101) 07/27/24 04:49 MCH 31.7 pg (27-33) 07/27/24 04:49 MCHC 34.0 g/dL (30-55) 07/27/24 04:49 RDW 13.7 % (12.1-15.1) 07/27/24 04:49 Plt Count 251 10^3/cmm (157-399) 07/27/24 04:49 MPV 10.7 fL (7.4-10.4) H 07/27/24 04:49 Neut % (Auto) 83.3 % 07/27/24 04:49 Lymph % (Auto) 8.3 % 07/27/24 04:49 Harvey % (Auto) 7.8 % 07/27/24 04:49 Eos % (Auto) 0.0 % 07/27/24 04:49 Baso % (Auto) 0.1 % 07/27/24 04:49 Neut # (Auto) 13.81 10^3/uL (1.8-7.7) H 07/27/24 04:49 Lymph # (Auto) 1.4 10^3/uL (0.8-4.8) 07/27/24 04:49 Harvey # (Auto) 1.3 10^3/uL (0.2-0.9) H 07/27/24 04:49 Eos # (Auto) 0.0 10^3/uL (0.0-0.8) 07/27/24 04:49 Baso # (Auto) 0.0 10^3/uL (0.0-0.1) 07/27/24 04:49 Nucleated RBC % (auto) 0 % 07/27/24 04:49 Nucleated RBCs # 0.0 /100WBC 07/27/24 04:49 Sodium 139 mmol/L (136-145) 07/27/24 04:49 Potassium 4.1 mmol/L (3.5-5.1) 07/27/24 04:49 Chloride 103 mmol/L (98-107) 07/27/24 04:49 Carbon Dioxide 26 mmol/L (22-29) 07/27/24 04:49 Anion Gap 14.1 (5-19) 07/27/24 04:49 BUN 16 mg/dL (8-23) 07/27/24 04:49 Creatinine 1.2 mg/dL (0.7-1.2) 07/27/24 04:49 GFR Calculation Not Reportable 07/27/24 04:49 Glucose 116 mg/dL (65-115) H 07/27/24 04:49 Calculated Osmolality 290 mOsm/kg (285-295) 07/27/24 04:49 Calcium 8.9 mg/dL (8.5-10.5) 07/27/24 04:49 Total Bilirubin 0.5 mg/dL (0.15-1.2) 07/27/24 04:49 Direct Bilirubin 0.20 mg/dL (0.00-0.30) 07/27/24 04:49 AST 21 U/L (0-40) 07/27/24 04:49 ALT 11 U/L (0-41) 07/27/24 04:49 Alkaline Phosphatase 87 U/L (40-130) 07/27/24 04:49 Total Protein 5.8 g/dL (6.6-8.7) L 07/27/24 04:49 Albumin 3.3 g/dL (3.5-5.2) L 07/27/24 04:49 Globulin 2.5 g/dL (1.3-4.6) 07/27/24 04:49 Urine Color Yellow (Yellow) 07/27/24 10:30 Urine Appearance Cloudy (CLEAR) A 07/27/24 10:30 Urine pH 5.0 (5-7) 07/27/24 10:30 Ur Specific [place] 1.043 (1.005-1.030) H 07/27/24 10:30 Urine Protein 1+ (Negative) A 07/27/24 10:30 Urine Glucose (UA) Negative (Normal) 07/27/24 10:30 Urine Ketones Trace (Negative) 07/27/24 10:30 Urine Blood 2+ (Negative) A 07/27/24 10:30 Urine Nitrate Negative (Negative) 07/27/24 10:30 Urine Bilirubin Negative (Negative) 07/27/24 10:30 Urine Urobilinogen 1.0 mg/dL (Negative) 07/27/24 10:30 Ur Leukocyte Esterase 1+ (Negative) A 07/27/24 10:30 Urine RBC 21-50 /hpf (0-2) H 07/27/24 10:30 Urine WBC 51-100 /hpf (0-5) H 07/27/24 10:30 Ur Squamous Epith Cells 0-5 /hpf (0-5) 07/27/24 10:30 Amorphous Sediment Not Reportable 07/27/24 10:30 Urine Bacteria None seen /hpf (NONE) 07/27/24 10:30 Hyaline Casts 4.11 /lpf 07/27/24 10:30 Blood Type O Negative 07/26/24 08:15 Rho(D) Type Rh negative 07/26/24 08:15 Antibody Screen Negative 07/26/24 08:15 Vitals Last Vital Signs Temp 98.0 F 07/27/24 13:55 Pulse 85 07/27/24 13:55 Resp 16 07/27/24 13:55 BP 144/94 07/27/24 13:55 Pulse Ox 93 07/27/24 13:55 O2 Del Method Room Air 07/27/24 11:44 O2 Flow Rate 8 07/26/24 12:06 Discharge Plan Discharge Patient Disposition: Home Health Service Condition: Stable Prescriptions: New Eliquis 2.5 mg tablet 2.5 mg PO BID 14 Days Qty: 28 0RF Continued levalbuterol tartrate [Xopenex HFA] 45 mcg/actuation HFA aerosol inhaler 2 inh inhalation Q6H amlodipine 5 mg tablet 5 mg PO DAILY 30 Days Qty: 30 5RF docusate sodium [Colace] 100 mg capsule 100 mg PO BID Qty: 14 0RF Held naproxen sodium [Aleve] 220 mg tablet 220 mg PO BID PRN (Reason: Pain) Hold Instructions: Resume on 03/30/24. hydrocodone-acetaminophen 7.5-325 mg tablet 1 tab PO Q6H PRN (Reason: pain) Qty: 20 0RF Hold Instructions: Resume on 08/10/24. Discharge Orders: Discharge Order (Routine); Ordered 07/27/24 Ordered By: Shiv Vang Referrals: [facility] [Outside] Shiv Vang DO [Physician] - 08/10/24 9:30 am Discharge Diet: Regular Discharge Activity: Limit activity as instructed Patient Instructions: Oxycodone/Acetaminophen (By mouth), Apixaban (By mouth), Acute Wound Care (DC), Total Knee Replacement (GEN), Opioid Safety, Post Anesthesia Care Activity Restrictions/Additional Instructions: Ortho discharge instructions May remove Mina bandage after 3 days richard Dressing--Keep dressing on and dry. After 3 days you can remove some of the dressing and shower. disconnect battery pack when showering. Richard dressing will stay on until follow up appt in 2 weeks. The battery pack for the dressing will at 5-7 days. Battery pack can be removed and discarded once batteries . Patient may weight-bear as tolerate to the operative extremity Utilize walker as needed Encourage knee range of motion Ice and elevate as needed for pain and swelling Take pain medication as prescribed Take antinausea medication as needed Pain medication can cause constipation. take [id number] stool softeners and or MiraLAX. Take prescribed Eliquis twice daily for the next 14 days for blood clot prevention May supplement for pain with Tylenol [id number] as needed(1000 mg every 8 hours-do not exceed more than 3000mg in 24-hour period) No baths or soaks Follow-up in the orthopedic office in 2 weeks Contact the office for any questions or concerns Discharge Attestations Time Spent in Discharge Care*: less than 30 min Quality Metrics Clinical Quality Measures [ No reported AMI, CVA or VTE this stay] Coding Level of Care Code Acute Code for Chg Fwd Diagnoses Benign essential HTN I10 COPD (chronic obstructive pulmonary disease) J44.9 Left knee DJD M17.12 Time Spent (min) 20
[2024-07-27 13:55] VITALS: BP 144/94; PULSE 85; RESP 16; TEMP 36.7; O2SAT 93
== END 2024-07-27 13:57 | disposition home health service (06) ==
LOC: MEDSURG 12:10
PROVIDERS: Family Medicine; Physician Assistant; Admitting Provider Student in an Organized Health Care Education/Training Program; PCP Family Medicine; Visit Provider Student in an Organized Health Care Education/Training Program
PROC: 8E0Y0CZ Robotic Assisted Procedure of Lower Extremity, Open Approach (ICD-10-PCS; CPT 27447; principal; 2024-07-26 09:40)
DX: M17.12 Unilateral primary osteoarthritis, left knee (principal); I10 Essential (primary) hypertension; J44.9 Chronic obstructive pulmonary disease, unspecified; Z87.891 Personal history of nicotine dependence
CPT/HCPCS: 27447; 20985; 36415; 51702; 71045; 73560; 80048; 80076; 81001; 85025; 86850; 86900; 87086; 97110; 97116; 97161; 97165; A4216; C1776; G0378; J0131; J0171; J0690; J1100; J1885; J2371; J2704; J2795; J3370; J3490; J7030; J7120

== ENCOUNTER 2024-08-03 13:45 | Outpatient (RCR) | payer MEDICARE, OTHER, SELFPAY | END 2024-08-20 23:59 | disposition home or self-care (01) | LOC: SPT 13:45 | PROVIDERS: Visit Provider Physician Assistant | DX: Z47.1 Aftercare following joint replacement surgery (principal); Z96.652 Presence of left artificial knee joint | CPT/HCPCS: 97110; 97140; 97161 ==

== ENCOUNTER → 2024-08-10 09:11 | Outpatient (BNVA) | payer MEDICARE, OTHER, SELFPAY | PROVIDERS: PCP Family Medicine; Visit Provider Physician Assistant | DX: Z96.652 Presence of left artificial knee joint (principal) | CPT/HCPCS: 73560; 73565; 99024 ==

== ENCOUNTER 2024-08-21 06:00 | Outpatient (RCR) | payer MEDICARE, OTHER, SELFPAY | END 2024-09-20 23:59 | disposition home or self-care (01) | LOC: SPT 06:00 | PROVIDERS: PCP Family Medicine; Visit Provider Physician Assistant | DX: Z47.1 Aftercare following joint replacement surgery (principal); Z96.652 Presence of left artificial knee joint | CPT/HCPCS: 97110; 97140 ==

== ENCOUNTER 2024-09-21 05:00 | Outpatient (RCR) | payer MEDICARE, OTHER, SELFPAY | END 2024-10-20 23:59 | disposition home or self-care (01) | LOC: SPT 05:00 | PROVIDERS: PCP Family Medicine; Visit Provider Physician Assistant | DX: Z47.1 Aftercare following joint replacement surgery (principal); Z96.652 Presence of left artificial knee joint | CPT/HCPCS: 97110; 97140; 97164 ==

== ENCOUNTER 2025-02-22 12:54 | Outpatient (CLI) | payer MEDICARE, OTHER, SELFPAY | END 2025-02-22 12:55 | disposition home or self-care (01) | LOC: SLEEP 12:55 | PROVIDERS: PCP Family Medicine; Visit Provider Family Medicine | DX: J44.9 Chronic obstructive pulmonary disease, unspecified (principal); J45.909 Unspecified asthma, uncomplicated | CPT/HCPCS: 94762 ==